=== PATIENT | male | born 1945 | race Caucasian/White ===

== ENCOUNTER 2024-10-04 07:10 | Emergency (ER) | payer OTHER, SELFPAY ==
[2024-10-04 07:16] VITALS: BP 122/68; PULSE 80; RESP 18; TEMP 36.7; O2SAT 99
[2024-10-04 07:48] VITALS: PULSE 101; RESP 20
--- NOTE | 2024-10-04 07:48 | PC.NURSE ---
Patient to er via ems from [facility] with c/o needing g tube placement, current g tube broken, also, patient c/o right lower leg pain. Dr. Conklin at [facility] with Dr. Mistry to assess patient. Currently patient alert and oriented x 2, multiple wounds noted to right lateral lower leg and patient states the pain to right lower leg 10/10 at this time and has kept him up all night, patient intermittently confused, rambling, new orders received. Call light within reach.
[2024-10-04 07:52] VITALS: BMI 29.3
--- NOTE | 2024-10-04 08:10 | EDNOTE_ITS ---
ED General RME/HPI General Chief complaint: General Adult/Misc Complain Stated complaint: G TUBE REPLACEMENT Time Seen by Provider: 10/04/24 08:14 Arrival date/time: 10/04/24 07:10 RME / HPI RME / HPI narrative: Patient is an 79-year-old male with past medical history of dysphagia s/p G-tube dependence, type 2 diabetes, hypertension, paroxysmal afib, CAD, hyperlipidemia, PTSD, GERD, BPH who was brought from [facility] to the ED on 10/04/2024 due to broken G-tube tubing needing replacement. Patient at this time denies any abdominal pain, distention, discomfort. Related Data Home Medications ?Medication ?Instructions ?Recorded ?Confirmed Metformin Hcl * (GLUCOPHAGE *) 500 mg PO BIDAC #0 tabs 01/22/15 11/02/17 lisinopril 20 mg tablet 20 mg PO QDAY #0 tabs 11/02/17 Previous Rx's ?Medication ?Instructions ?Recorded Amlodipine Besylate 5 mg PO QDAY #30 tabs aspirin 81 mg chewable tablet 81 mg PO QDAY ##30 05/19 nitroglycerin 0.4 mg sublingual 0.4 mg SL Q5MIN PRN CH EST PAIN #15 05/19/16 tablet (Nitrostat) tabs polyethylene glycol 3350 17 gram 17 gm PO QDAY PRN con stipation 05/19/16 oral powder packet ##10 Allergies Allergy/AdvReac Type Severity Reaction Status Date / Time Penicillins Allergy Severe Hives Verified 12/15/18 11:29 Past Medical History Past Medical History Comments PMH COMMENT: Past Medical History: Dysphagia s/p G-tube dependence, type 2 diabetes, hypertension, paroxysmal afib, CAD, hyperlipidemia, PTSD, GERD, BPH Family History: Unknown Surgical History: Pacemaker placement Social History: Former smoker, denies current alcohol use, denies recreational drug use Current Medications: Acetaminophen 325 mg qday, carbidopa-levodopa 25-100 mg qday, dulcolax 10 mg prn, sodium phosphate enema prn, ferrous sulfate 7 ml qday, furosemide 20 mg qday, gabapentin 300 mg BID, insulin glargine 5 U qday, miconazole powder 2% to groin BID, milk of magnesia 30 ml prn, mirtazapine 7.5 mg HS, multivitamin, [place] 5-325 mg BID prn pain, polyethylene glycol prn, vitamin C 500 mg BID, zinc oxide 40% q8h (Source: [facility] medicat ion list 10/04/2024) Allergies: Metformin, penicillin, simvastatin ED Exam Narrative Physical exam: Physical Exam General: Elderly male, awake and in no acute distress. Conversational and non- toxic appearing. HEENT: Normocephalic, atraumatic, mucous membranes moist. Heart: Regular rate and rhythm, no murmurs. Lungs: Clear to auscultation with no wheezing or crackles. Abdomen: Soft, nondistended, nontender, positive bowel sounds. ?No guarding or rebound tenderness. Neurologic: Alert and oriented x3, no gross neurological deficit, and patient able to move all 4 extremities. Extremities: No edema. Skin: No rash or ecchymoses. Course Quality Measures none Orders Category Date Time Status Morphine Inj Med 10/04/24 08:13 Discontinued 4 mg IVP X1 ONE Morphine Inj (ASD use only) Med 10/04/24 07:59 Discontinued 4 mg IVP X1 ONE Ondansetron Inj [Zofran Inj] Med 10/04/24 08:01 Discontinued 4 mg IV X1 ONE Zofrab Med 10/04/24 08:00 Discontinued 4 mg IV X1 ONE Vital Signs Vital signs: Vital Signs Temperature 98.1 F 10/04/24 07:16 Pulse Rate 80 10/04/24 07:16 Respiratory Rate 18 10/04/24 07:16 Blood Pressure 122/68 10/04/24 07:16 Pulse Oximetry (%) 99 10/04/24 07:16 Oxygen Delivery Method Room Air 10/04/24 07:16 Procedures -ED Procedure Comment Patient had debridement of the lateral right lower leg ulcers in 3 different [address]. Done by Dr. Conklin and Dr. Mistry. Debridement was done at bedside using a #10 blade unroofing the hard tops of necrotic cevallos tissue. Patient was transitioned to wet to dry dressings. Discharge instructions were written for wet to dry changes 3 times daily. [place] Patient data External records reviewed:: [facility] previous records Clinical information provided by:: EMS and other (specify) (facility) Social determinants that could affect healthcare access:: none Patient has the following chronic illnesses:: As above How is presenting disease/condition affected by chronic disease/condition?: uneffected by Evaluation data The following diagnostics were reviewed and interpreted by me:: other (specify) Lab and/or radiology exams considered but not ordered:: None Interpretation Summary: None Medications Medications considered but not ordered:: Given Medication administrations:: Medication Administration History Discontinued Medications Morphine Sulfate (Morphine Sulf Inj 10 Mg/Ml Vial (Asd Use Only)) 4 mg IVP X1 ONE Stop: 10/04/24 08:00 Last Admin: 10/04/24 08:16 Dose: Not Given Documented By: SHARLENE Non-Admin Reason: Duplicate Medication on eMAR Morphine Sulfate (Morphine Sulf Inj 10 Mg/Ml Vial) 4 mg IVP X1 ONE Stop: 10/04/24 08:14 Last Admin: 10/04/24 08:17 Dose: 4 mg Documented By: SHARLENE Non-Formulary Medication (Zofrab) 4 mg IV X1 ONE Stop: 10/04/24 08:01 Last Admin: 10/04/24 08:02 Dose: Not Given Documented By: SHARLENE Non-Admin Reason: Cancelled by Provider Ondansetron HCl (Ondansetron Inj 2 Mg/Ml Inj 2 Ml) 4 mg IV X1 ONE; Protocol Stop: 10/04/24 08:02 Last Admin: 10/04/24 08:17 Dose: 4 mg Documented By: SHARLENE Given Consultations Consultation(s) initiated? (list below): Yes Consultation #1 (Physician, Specialty, Details): 08:12 PCP, Dr. Cotto - Attempted to reached out to patient's primary care physician regarding decubitus ulcers located on the patient's right leg, at office number however patient is not established at this clinic. Reached out to Dr. Cotto's cell number but also did not get a response. Diagnosis Differential Diagnosis ED Complaint MDM: G tube end broken Most likely diagnosis given after review of the tests above:: G tube disfunction Admission Indicated Admission indicated?: not indicated Explain why admission is indicated or not indicated:: G tube replaced in ED Admission Request Was there a request for admission?: No Disposition Plan Disposition Plan: Discharge Discharge Attestation Discharge Attestation: The patient and all family members were given an opportunity to ask questions an d understood the discharge instructions. Discharge instructions specifically effects, indications for sooner follow up or return to the emergency department, and the expected course of current diagnosis. Patient condition: Stable Medical Decision Making Differential Diagnosis Differential Diagnosis: G tube end broken Discharge Plan Plan Patient Disposition: Xfer Skilled Nsg Fac (SNF) Disposition Comment: Stable for discharge back to [facility] Patient condition on transfer: Stable Prescriptions/Referrals Prescriptions/Med Rec: No Action Metformin Hcl * (GLUCOPHAGE *) tablet 500 mg PO BIDAC Qty: 0 lisinopril 20 MG tablet 20 mg PO QDAY Qty: 0 Amlodipine Besylate 5 MG tablet 5 mg PO QDAY Qty: 30 0RF polyethylene glycol 3350 17 GM packet 17 gm PO QDAY PRN (Reason: constipation ) Qty: 10 0RF nitroglycerin [Nitrostat] 0.4 MG tablet, sublingual 0.4 mg SL Q5MIN PRN (Reason: CHEST PAIN) Qty: 15 0RF aspirin 81 MG tablet,chewable 81 mg PO QDAY Qty: 30 0RF Referrals: No Primary/Family,Physician [Primary Care Provider] - In 1 week Problem List Clinical Impression: Gastrostomy tube dysfunction, Decubitus ulcer of ankle, stage 2, Skin ulcer of right lower leg, Ulcer of sacral region, stage 2 Patient/Caregiver Discharge Instructions Education Materials: Pressure Ulcer Protect Patient, Staff Ed Reducing a Patient's ..., Preventing Pressure Sores Additional Instructions: The patient's G-tube has been replaced as per the primary concern for Krishna Aguila's visit today. While the patient was examined in the ED, we have noticed several pressure ulcers present as the patient was complaining of leg pain. Dr. Cotto was contacted to bring awareness to the right lower leg ulcers, and the patient needs to be set up with the [facility] for outpatient visits with Dr. Joy and/or associates if this can be arranged. While in ED, we debrided a small pustule on the right heel and 3 small ulcers capped with dry necrotic tissue. If unable to see the [facility], patient would benefit from continued debridement and care of the right lower extremity ulcers especially, if there is a rounding provider who can provide this care. Please do wet to dry dressing changes 3 times daily for the right lower extremity heel and rodney ulcers. Please apply topical silver sulfadiazine or bacitraicin to prevent skin infections daily. Please use waffle mattress, foam shoes, and turn the patient every 2 hours when awake to prevent further pressure injuries. Return the patient to the ED in case of bleeding, redness, purulence, or suspicion for uncontrolled infection. Print Language: Greenlandic Stand Alone Forms: Ramona Award Info., Patient Portal Info Letter MD Attestation Attestation I, Ha Conklin MD, have reviewed the history, exam, and assessment of the patient. I have evaluated the patient independently and agree with the plan of care documented by [ ]. All diagnostic studies were reviewed and discussed. I confirm the diagnosis as documented by the Resident. I was present during the Medical Decision Making for this patient. The patient's plan of care was created between myself and the Resident and consistent with our discussion of the patient's case. This patient was seen by me and the resident in the ambulance bay and found to have a broken connector to the G-tube that was probably placed endoscopically sometime in the past. The exact date was unknown was not done at this facility though. A 20 Icelandic Gianluca tube was obtained from storage supply and was replaced by myself with the resident observing. Then the new 1 was inserted and was tolerated quite well. The balloon was filled with 10 cc of saline. There appeared to be function and patient tolerated that well. Secondarily patient has right leg especially more than the left the lots of excoriations and there are some eschar on the lower lateral side of that leg which is hard to see because his leg is constantly rotated laterally. There was no obvious infection at the eschar on the lower right lateral but we debrided some of that to prove that I removed a couple of the eschars with granulation tissue underneath Incidentally the right heel also had a small pyoderma a small little blister and is early pressure ulcer. Also from that area debrided a small eschar and we took a scalpel just broke the blister and there was nothing but superficial involvement with no extension deep there was granulation tissue and minimal amount of pus. No evidence of cellulitis at this time the pen king were placed on the heel. The resident contacted Dr Cotto the attending physician for the detention patient and assured there would be follow-up for the wound care close management and possible referral to the wound care clinic care. No medical workup was indicated on this patient G-tube was replaced and distal local wounds were evaluated for any deeper infection and were found to be nothing but superficial.
[2024-10-04] MEDS: MORPHINE SULF INJ 10 MG/ML VIAL 4 MG IVP (08:17)
[2024-10-04] MEDS: ONDANSETRON INJ 2 MG/ML INJ 2 ML 4 MG IV (08:17)
--- NOTE | 2024-10-04 09:13 | PC.NURSE ---
Patient lying gurney queitly resting, states pain to right lower leg is better, 5/10 on flacc scale. Call light within reach.
[2024-10-04 11:12] VITALS: BP 126/73; PULSE 80; RESP 16; O2SAT 96
--- NOTE | 2024-10-04 13:59 | PC.SS ---
Addendum entered by NANETTE Rosen 10/04/24 14:12: Updated patient's daughter Lilly to make aware, patient to return to SNF. Addendum entered by NANETTE Rosen 10/04/24 14:10: Received call from [facility] informing transport moved to 2:40pm. Updated bed side nurse and [facility] admissions, [place]. Original Note: ASW arranged transportation for the patient to return to [facility]. Patient unable to cover transport and does not posses transportation coverage through his insurance carrier. [facility]. Provided 4pm ETA. Updated bed side nurse, and SNF staff to make aware.
[2024-10-04 14:20] VITALS: BP 127/69; PULSE 81; RESP 16; O2SAT 100
--- NOTE | 2024-10-04 14:21 | PC.NURSE ---
Patient lying in gurney sleeping, patient awakens and responds normally to voice, patient awaiting transport back to [facility], social work nurse arranged transport. Call light within reach.
[2024-10-04 14:31] VITALS: BP 132/64; PULSE 80; RESP 20; TEMP 36.4; O2SAT 100
== END 2024-10-04 14:44 | disposition skilled nursing facility (03) ==
PROVIDERS: Emergency Provider Emergency Medicine
DX: K94.23 Gastrostomy malfunction (principal); E11.9 Type 2 diabetes mellitus without complications; N40.0 Benign prostatic hyperplasia without lower urinary tract symptoms; K21.9 Gastro-esophageal reflux disease without esophagitis; E78.5 Hyperlipidemia, unspecified; I10 Essential (primary) hypertension; I48.0 Paroxysmal atrial fibrillation; I25.10 Atherosclerotic heart disease of native coronary artery without angina pectoris; L89.502 Pressure ulcer of unspecified ankle, stage 2
CPT/HCPCS: 43762; 96374; 96375; 99284; J2270; J2405

== ENCOUNTER 2024-10-17 13:04 | Inpatient (IN) | payer MEDICARE, MEDICAID, OTHER, SELFPAY ==
[2024-10-17] VITALS (22 sets, daily range): BP systolic 95–162; BP diastolic 54–83; PULSE 65–146; RESP 15–85; TEMP 37–38.6; O2SAT 85–100; BMI 28.8; BMI 28.2
--- NOTE | 2024-10-17 | XR_ITS ---
Examinations: MRI Brain without intravenous contrast. MRA brain without intravenous contrast. MRA carotids without intravenous contrast 3-D vascular reconstructions Date and time of exam: October 17, 2024 1809 hrs. Indications: Stroke alert today, onset right-sided facial droop Technique: Multiple axial and sagittal images of the brain have been obtained MRA brain carotid images without contrast obtained, including 3-D postprocessing, vascular maximum intensity projection images Findings: Sellaturcica is not enlarged. The optic chiasm and infundibular stalk are not remarkable. Prepontine and interpeduncular cisterns are not enlarged. No localized enlargement of the medulla or ina. Fourth ventricle and cerebellar tonsils normal in position. Subacute hemorrhage is not seen. Fourth ventricle is midline. Mass in the cerebellopontine angle region is not evident. 7th and 8th nerve complexes exhibits symmetry. Globes are symmetrical with no retro-orbital mass. Increased white matter signal moderate Diffusion-weighted images demonstrate no focus of restricted diffusion Mass-effect upon the ventricular system is not identified. MRA carotid images degraded by patient motion. MRA brain images no large vessel occlusions Impression: Negative for acute hemorrhage mass effect or midline shift No acute infarct Moderate chronic microvascular white matter change
--- NOTE | 2024-10-17 13:05 | PC.NURSE ---
PT ARRIVED BY AMBULANCE WITH C/O FACIAL DROOP FROM THE SNF, LAST WELL AT 1140. NO FACIAL DROOP NOTED AT THIS TIME BUT PT NOT FOLLOWING ALL COMMANDS. PT ANSWERS NAME AND PLACE CORRECTLY BUT NOT MONTH OR YEAR. PT WITH DRESSINGS AND WAFFLE BOOTS TO BOTH FEET. KEEPS YELLING AT LAB TO QUIT POKING ME.
--- NOTE | 2024-10-17 13:10 | XR_ITS ---
Examination: CT brain head without contrast. 2-D sagittal coronal reconstructions Date and time of exam:October 17, 2024 1314 hours INDICATIONS: Stroke alert, onset right-sided facial droop today CTDI: vol (mGy):57.2 DLP: (mGycm):1154 Technique: Multiple CT axial sections of the brain have been obtained, 5 mm slice thickness. Contrast has not been administered. 2-D sagittal, coronal reconstructions have been obtained Low dose protocols were performed. One or more of the following dose reduction techniques were used; automated exposure control, adjustment of the mA and/or KV according to patient size, use of iterative reconstruction technique. Findings: No significant ventricular enlargement. Intra-axial or extra-axial hemorrhage density is not seen. No mass effect or midline shift Basal cisterns are not remarkable. Fourth ventricle is midline. Cranial vault intact. Impression: Negative for acute hemorrhage, mass effect or midline shift
--- NOTE | 2024-10-17 13:10 | XR_ITS ---
Examination: CTA carotids with intravenous contrast CTA brain, head with intravenous contrast. 2-D sagittal, coronal reconstructions. 3-D reconstructions. Exam date and time: October 17, 2024 1323 hours CTDI: vol (mGy) 11.3 DLP: (mGycm) 146 Technique: Multiple CTA axial brain, head carotid images post intravenous contrast injection 100 cc, Isovue-370. 2-D sagittal, coronal reconstructions. 3-D reconstructions, 3-D post processing including vascular maximum intensity projection images. Low dose protocols were performed. One or more of the following dose reduction techniques were used; automated exposure control, adjustment of the mA and/or KV according to patient size, use of iterative reconstruction technique. Findings: No significant common carotid carotid bifurcation or internal carotid artery stenoses Very atretic left vertebral artery with areas of no opacification in the neck No cerebral large vessel arterial occlusions or thrombus IMPRESSION: Very atretic left vertebral artery with areas of no opacification of the neck, recommend carotid vertebral sonography follow-up to assess for retrograde flow left vertebral artery No cerebral large vessel arterial occlusions or thrombus
--- NOTE | 2024-10-17 13:10 | EKG_ITS ---
[facility] Test Date: 2024-10-17 Pat Name: EROS LAU Department: Room: - Gender: Male Class A Lineman: : 1945 Requested By: Marlon Juarez Order Number: [id number] Reading MD: Marlon Juarez Measurements Intervals [place] Rate: 94 P: ME: QRS: -15 QRSD: 101 T: -76 QT: 357 QTc: 448 Interpretive Statements SUPRAVENTRICULAR RHYTHM ST DEVIATION AND MODERATE T-WAVE ABNORMALITY, CONSIDER ANTEROLATERAL ISCHEMIA [-0.1+ mV T-WAVE IN V3-V6] ST DEVIATION AND MODERATE T-WAVE ABNORMALITY, CONSIDER INFERIOR ISCHEMIA [-0.1+ mV T-WAVE IN II/aVF] Compared to ECG 12/15/2018 11:42:32 Supraventricular rhythm now present Possible ischemia now present Sinus rhythm no longer present Incomplete right bundle-branch block no longer present T-wave abnormality still present /store/S0/[id number]/ecg/[id number].pdf
[2024-10-17 13:18] LABS: Basophils # (Auto) 0.1 Thou/mm3 (0.0-0.2); Basophils % (Auto) 1 % (0-2.5); Eosinophils # (Auto) 0.3 Thou/mm3 (0.0-0.5); Eosinophils % (Auto) 2 % (0-10); Hematocrit 30.4 % (41.0-53.0); Hemoglobin 9.4 g/dL (13.5-16.0); Immature Granulocytes % (Auto) 1 % (0-0); Immature Granulocytes Auto 0.11 Thou/mm3 (0.00-0.00); Lymphocytes # (Auto) 1.9 Thou/mm3 (1.0-4.8); Lymphocytes % (Auto) 11 % (10-50); Mean Corpuscular HGB Conc 30.9 g/dl (31.0-37.0); Mean Corpuscular Hemoglobin 28.4 pg (25.0-35.0); Mean Corpuscular Volume 92 fL (80-100); Monocytes # (Auto) 1.5 Thou/mm3 (0.0-0.8); Monocytes % (Auto) 8 % (0-12); Neutrophils # (Auto) 13.8 Thou/mm3 (1.8-7.7); Neutrophils % (Auto) 78 % (37-80); Nucleated Red Blood Cell % 0 /100 WBC (0); Platelet Count 402 Thou/mm3 (140-440); RDW Standard Deviation 50.7 fL (35.1-43.9); Red Blood Count 3.31 Miln/mm3 (4.50-5.90); White Blood Count 17.6 Thou/mm3 (3.8-10.6)
[2024-10-17 13:33] LABS: INR 1.1 (0.9-1.3); Partial Thromboplastin Time 29.9 Seconds (22.0-36.0); Prothrombin Time 12.1 Seconds (9.0-12.2)
--- NOTE | 2024-10-17 13:35 | PC.NURSE ---
PT WITH GT TO UPPER MID ABD. SITE WITHOUT REDNESS
--- NOTE | 2024-10-17 13:36 | ESCONSULT_ITS ---
Tele Neuro Consultation Consultation Date 10/17/24 Laboratory-Coagulation Panel PT 12.1 Seconds (9.0-12.2) 10/17/24 13:12 INR 1.1 (0.9-1.3) 10/17/24 13:12 APTT 29.9 Seconds (22.0-36.0) 10/17/24 13:12 Consultation Narrative [facility] Patient Name:???Krishna Aguila Date of :???1945 Date of Service:???10/17/2024 13:05:00 Diagnosis:?G93.41 - Encephalopathy Metabolic Impression: ?79 yo M who presents with reported facial droop and now with AMS. HCT shows tiny dot of hyperdensity in left frontal hart radiata region adjacent to edge of lateral ventricle of unclear etiology. Called both numbers in chart for contacts (2 daughters is what is listed) with no answer. With patient currently altered and unable to go through contraindications/risks/benefits to TNK/thrombolytics, not a candidate for thrombolytics at this time. CTA pending to evalute for LVO but would doubt LVO based on current symptoms (whether this is stroke or not is also very questionable). Pending no LVO on CTA, would admit for broad AMS workup as follows: Our recommendations are outlined below. Recommendations: ? Stroke/Telemetry Floor ? Neuro Checks ? Bedside Swallow Eval ?-f/u CTA head/neck ?-obtain MRI brain w/o contrast (routine) ? --if + for acute stroke = will need full stroke workup (including MRA head/neck w/o contrast, lipid panel, A1c, TTE, asa/atorvastatin, etc) ? --allow for permissive HTN up to 180 systolic while MRI brain pending ? --if MRI negative for stroke = goal of normotension per primary team ?-obtain B12, folate, TSH, ammonia ?-obtain UA, CXR ?-obtain UDS, Etoh Level ?-obtain CMP, CBC if not already done ?-Delirium precautions: Blinds open during the day, closed at night, frequent reorientation, minimize nighttime interruptions ?-When possible, avoid benzodiazepines, opioid pain medications, and anticholinergic medications ?-dvt ppx per primary team ?-PT/OT/ST consults - inpatient rehab if recommended ?-call neurology immediately with significant change in exam Sign Out: ? Discussed with Emergency Department Provider Advanced Imaging:Advanced imaging has been ordered. Results pending. Metrics: Last Known Well: 10/17/2024 11:40:00 Dispatch Time: 10/17/2024 13:05:00 Arrival Time: 10/17/2024 13:04:00 Initial Response Time: 10/17/2024 13:06:50Symptoms: right facial droop. Initial patient interaction: 10/17/2024 13:19:00 NIHSS Assessment Completed: 10/17/2024 13:26:00Patient is not a candidate for Thrombolytic. Thrombolytic Medical Decision: 10/17/2024 13:34:20Patient was not deemed candidate for Thrombolytic because of following reasons: Care-team unable to determine eligibility. . I personally Reviewed the CT Head and HCT shows tiny dot of hyperdensity in left frontal hart radiata region adjacent to edge of lateral ventricle of unclear etiology Primary Provider Notified of Diagnostic Impression and Management Plan on: 10/17/2024 13:32:41 History of Present Illness:Patient is a 79 year old Male. Patient was brought by EMS for symptoms of right facial droop. 79 yo M who presents with reported facial droop and now with AMS. Per report, LKN 1140 am. Witnessed by staff at assisted had change reportedly (was being changed at the time). Only symptoms reported is new right facial droop. Patient answers some questions but not most, fairly uncooperative on exam. At times will yell out in complete sentences however. Lifts both arms, does not lift legs. Unclear what baseline status is. ? Past Medical History: ?Hypertension ?Diabetes Mellitus ?Atrial Fibrillation Other PMH:? GERD, PD Medications: No Anticoagulant use? No Antiplatelet use Reviewed EMR for current medications Other Medications Pertinent To Assessment Include: based on medications listed in documents Allergies:? Reviewed Social History: Unable To Obtain Due To Patient Status :?Patient Is Confused Family History: Family History Cannot Be Obtained Because:Patient Is Confused ROS : 14 Points Review of Systems was performed and was negative except mentioned in HPI. ? ? Examination: BP(129/79),?Pulse(121),?Blood Glucose(117) 1A: Level of Consciousness - Alert; keenly responsive?+ 0 1B: Ask Month and Age - Could Not Answer Either Question Correctly?+ 2 1C: Blink Eyes & Squeeze Hands - Performs 1 Task?+ 1 2: Test Horizontal Extraocular Movements - Normal?+ 0 3: Test Visual [place]ney - No Visual Loss?+ 0 4: Test Facial Palsy (Use Grimace if Obtunded) - Minor paralysis (flat nasolabial fold, smile asymmetry)?+ 1 5A: Test Left Arm Motor Drift - No Drift for 10 Seconds?+ 0 5B: Test Right Arm Motor Drift - No Drift for 10 Seconds?+ 0 6A: Test Left Leg Motor Drift - No Drift for 5 Seconds?+ 0 6B: Test Right Leg Motor Drift - No Effort Against [place]?+ 3 7: Test Limb Ataxia (FNF/Heel-Bell) - Does Not Understand?+ 0 8: Test Sensation - Normal; No sensory loss?+ 0 9: Test Language/Aphasia - Severe Aphasia: Fragmentary Expression, Inference Needed, Cannot Identify Materials?+ 2 10: Test Dysarthria - Normal?+ 0 11: Test Extinction/Inattention - No abnormality?+ 0 NIHSS Score:?9 NIHSS Free Text :?left facial droop Pre-Morbid Modified Jan Scale:Unable to assess Spoke with :?ED provider This consult was conducted in real time using interactive audio and video technology. Patient was informed of the technology being used for this visit and agreed to proceed. Patient located in hospital and provider located at home/office setting. Patient is being evaluated for possible acute neurologic impairment and high probability of imminent or life-threatening deterioration. I spent total of 30 minutes providing care to this patient, including time for face to face visit via telemedicine, review of medical records, imaging studies and discussion of findings with providers, the patient and/or family. Dr Adithya Mosqueda [facility] For Inpatient follow-up with [facility] physician please call [facility] at . As we are not an outpatient service for any post hospital discharge needs please contact the hospital for assistance. If you have any questions for the [facility] physicians or need to reconsult for clinical or diagnostic changes please contact us via [facility] at . ?
--- NOTE | 2024-10-17 13:45 | PC.NURSE ---
BACK FROM CT AND TURNED SIDE TO SIDE WITH 3 PERSON ASSIST AND LINEN CHANGED
[2024-10-17 13:46] LABS: Alanine Aminotransferase < 7 U/L (10-49); Albumin, Serum 3.7 gm/dL (3.4-4.8); Albumin/Globulin Ratio 0.7 (1.2-2.2); Alkaline Phosphatase 72 U/L (46-116); Anion Gap 11 (7-16); Aspartate Amino Transferase 16 U/L (0-34); BUN/Creatinine Ratio 28 Ratio (12-20); Bilirubin,Total 0.3 mg/dL (0.3-1.2); Blood Urea Nitrogen 39 mg/dL (9-23); Calcium 9.6 mg/dL (8.3-10.6); Calcium (Corrected) 9.8 mg/dL (8.5-10.1); Carbon Dioxide 22.4 mMol/L (20.0-31.0); Chloride 101 mMol/L (98-107); Creatinine (Component) 1.4 mg/dL (0.6-1.3); Estimated Creatinine Clearance 51.3 mL/min (>60); Globulin 5.3 gm/dL (2.3-3.5); Glucose 121 mg/dL (74-106); Magnesium 2.1 mg/dL (1.6-2.6); Osmolality,Calculated 278 (275-295); Potassium 5.2 mMol/L (3.4-5.1); Sodium 134 mMol/L (136-145); Troponin I < 0.020 ng/mL (0.0-0.045); eGFR 50 See Note
--- NOTE | 2024-10-17 13:55 | EDNOTE_ITS ---
ED General RME/HPI General Chief complaint: Neuro Symptoms/Deficit Stated complaint: POSS. STROKE, FACIAL DROOP Time Seen by Provider: 10/17/24 13:10 Arrival date/time: 10/17/24 13:04 CC: Stroke alert HPI patient presents the ER via EMS who report last known normal was at 11:40 AM with the patient now has a right-sided facial droop. The patient has a baseline diagnosis of encephalopathy and is oriented to person and place and occasionally to time. On initial assessment patient was following all commands with no deficits it was difficult to ascertain if the patient had a facial droop, as there was no significant findings. Patient was mildly agitated secondary to blood being drawn at the time of the initial assessment. Related Data Home Medications ?Medication ?Instructions ?Recorded ?Confirmed Metformin Hcl * (GLUCOPHAGE *) 500 mg PO BIDAC #0 tabs 01/22/15 11/02/17 lisinopril 20 mg tablet 20 mg PO QDAY #0 tabs 11/02/17 Previous Rx's ?Medication ?Instructions ?Recorded Amlodipine Besylate 5 mg PO QDAY #30 tabs aspirin 81 mg chewable tablet 81 mg PO QDAY ##30 05/19 nitroglycerin 0.4 mg sublingual 0.4 mg SL Q5MIN PRN CH EST PAIN #15 05/19/16 tablet (Nitrostat) tabs polyethylene glycol 3350 17 gram 17 gm PO QDAY PRN con stipation 05/19/16 oral powder packet ##10 Allergies Allergy/AdvReac Type Severity Reaction Status Date / Time Penicillins Allergy Severe Hives Verified 10/17/24 14:14 Review of Systems Review of Systems Narrative Review of Systems: GEN: No fever, no chills, no weight loss EYES: No discharge, no visual changes, no pain HEENT: No ear pain, no congestion, no sore throat PULM: No shortness of breath, no cough, no congestion CV: No chest pain, no dyspnea on exertion, no palpitations GI: No nausea, no vomiting, no diarrhea, no pain, no constipation : No frequency, no urgency, no dysuria MUSC/SKEL: No joint pain, no back pain SKIN: No rash PSYCH: No hallucinations, no depression HEME/LYMPH: No easy bleeding or bruising tendencies NEURO: No weakness, no headache Past Medical History Past Medical History CARDIAC: Positive Cardiac Disorders, Atrial Fibrillation, Coronary Artery Disease and Hypertension; Negative Congestive Heart Failure RESPIRATORY: Positive Pneumonia; Negative Chronic Obstructive Pulmonary Disease (COPD) GASTROINTESTINAL: Positive Gastroesophageal Reflux Disease GENITOURINARY: Negative Renal Disease MUSCULOSKELETAL: Positive Musculoskeletal Disorders (GENERALIZED WEAKNESS) ENDOCRINE: Positive Diabetes Mellitus Type 2; Negative Diabetes Mellitus Type 1 PSYCHO/SOCIAL: Positive Depression Surgical History SURGICAL: Positive Cardiac Catheterization and Pacemaker Social History SMOKING STATUS: Never smoker SUBSTANCE USE: does not use ED Exam Narrative Physical exam: [General: Obese appears not in any acute distress Head normocephalic HEENT: Eyes pupils are PERRLA EOMs are intact mouth pink dry membranes uvula is midline swallow symmetrical no tongue deviated good pronunciation. Swallow symmetrical phonation is normal. Nose no rhinorrhea or otorrhea. All other subsystems of HEENT are within acceptable limits Neck is supple nontender no JVD no edema Chest equal chest rise nontender to palpation Respiratory: Clear to auscultation no wheezes crackles or rubs CV: Rate rhythm is regular no murmurs rubs or clicks Abdomen is distended secondary to body habitus soft nontender no masses positive bowel sounds all 4 quadrants Back: No CVA tenderness no spinous process tenderness from cervical spine thoracic and lumbar spine Skin: Intact no petechiae rash induration ulceration or crepitus Extremities: Moving all extremity against resistance cap refill less than 2 seconds neurosensory intact Neuro: Awake alert oriented x2 person and place, Glascow coma 15 no focal deficits] Course Quality Measures none Orders Category Date Time Status Bedside Blood Glucose NOW Care 10/17/24 13:10 Completed Contour Path Tape Mill Operator NOW Care 10/17/24 13:10 Active Continuous Pulse Oximetry NOW Care 10/17/24 13:10 Completed EKG (ED ONLY) *Do not use* NOW Care 10/17/24 13:10 Completed In and Out Catheter NEEDED Care 10/17/24 13:10 Active Insert IV NOW Care 10/17/24 13:10 Active NIH Stroke Scale now Care 10/17/24 13:10 Active NPO NOW Care 10/17/24 13:10 Active Nurse Swallow Screen x1 Care 10/17/24 13:10 Active Consult to Neurology / Tele-Neurology Routine Cons 10/17/24 13:[address] angio stroke protocol Stat Exams 10/17/24 13:[address] stroke protocol Stat Exams 10/17/24 13:10 Completed EKG (ED Only) Stat Exams 10/17/24 13:10 Draft CBC Stat Lab 10/17/24 13:12 Completed Comprehensive Metabolic Panel Stat Lab 10/17/24 13:12 Completed Drug Screen,Urine Stat Lab 10/17/24 14:25 Completed Magnesium Stat Lab 10/17/24 13:12 Completed Partial Thromboplastin Time Stat Lab 10/17/24 13:12 Completed Prothrombin Time with INR Stat Lab 10/17/24 13:12 Completed Troponin I Stat Lab 10/17/24 13:12 Completed Urinalysis Stat Lab 10/17/24 14:25 Completed Urine Culture Stat Lab 10/17/24 14:25 Received Ondansetron Inj [Zofran Inj] Med 10/17/24 13:10 Active 4 mg IV Q4HR PRN Oxygen Delivery NOW RT 10/17/24 13:10 Active Vital Signs Vital signs: Vital Signs Pulse Rate 96 10/17/24 13:08 [facility] Patient data External records reviewed:: [facility] previous records and EMS form Clinical information provided by:: patient and EMS Social determinants that could affect healthcare access:: none Patient has the following chronic illnesses:: Acute respiratory failure gastritis encephalopathy gastrotomy A-fib How is presenting disease/condition affected by chronic disease/condition?: u neffected by Evaluation data The following diagnostics were reviewed and interpreted by me:: lab results, radiology exam(s) and EKG tracing(s) Lab and/or radiology exams considered but not ordered:: EKG performed at 1342 shows ventricular rate of 94 QRS 101 QTc of [address] segment depressions in V3 4 5 and 6. Baseline artifact in leads I and II. ST separate depressions are new finding compared to an old EKG of July 2020. CBC shows a white count of 17.6 H&H of 9.4 and 30.4 respectively with a platelet count of 402 Coags within acceptable limits Sodium 134 potassium of 5.2 glucose of 121. BUN of 39 creatinine 1.4 no transaminitis or T. bili elevation Troponin is negative CT of the head interpreted by me read by radiology as negative for any acute finding CTA shows no LVO's or gross abnormalities. Interpretation Summary: Discussion with neurology patient does not meet tPA criteria, no family members have come to discuss it with me at this time patient will be admitted for rule out CVA. Patient's case discussed with resident for Dr. June who agrees to accept the patient for admission. Medications Medications considered but not ordered:: None Medication administrations:: Medication Administration History Ondansetron HCl (Ondansetron Inj 2 Mg/Ml Inj 2 Ml) 4 mg IV Q4HR PRN PRN Reason: NAUSEA OR VOMITING Stop: 11/16/24 13:09 None Consultations Consultation(s) initiated? (list below): Yes Consultation #1 (Physician, Specialty, Details): Teleneurologist Time: 15:26 Diagnosis Differential Diagnosis ED Complaint MDM: CVA TIA intercranial hemorrhage Most likely diagnosis given after review of the tests above:: CVA Admission Indicated Admission indicated?: indicated Explain why admission is indicated or not indicated:: Further medical workup Admission Request Was there a request for admission?: No Disposition Plan Disposition Plan: Admit Medical Decision Making Differential Diagnosis Differential Diagnosis: CVA TIA intercranial hemorrhage Lab Data 10/17/24 13:12 10/17/24 13:12 Labs: Lab Results 10/17/24 10/17/24 Range/Units 13:12 14:25 WBC 17.6 H (3.8-10.6) Thou/mm3 RBC 3.31 L (4.50-5.90) Miln/mm3 Hgb 9.4 L (13.5-16.0) g/dL Hct 30.4 L (41.0-53.0) % MCV 92 (80-100) fL MCH 28.4 (25.0-35.0) pg MCHC 30.9 L (31.0-37.0) g/dl RDW Std Deviation 50.7 H (35.1-43.9) fL Plt Count 402 (140-440) Thou/mm3 Neut % (Auto) 78 (37-80) % Lymph % (Auto) 11 (10-50) % [place] % (Auto) 8 (0-12) % Eos % (Auto) 2 (0-10) % Baso % (Auto) 1 (0-2.5) % Neut # (Auto) 13.8 H (1.8-7.7) Thou/mm3 Lymph # (Auto) 1.9 (1.0-4.8) Thou/mm3 [place] # (Auto) 1.5 H (0.0-0.8) Thou/mm3 Eos # (Auto) 0.3 (0.0-0.5) Thou/mm3 Baso # (Auto) 0.1 (0.0-0.2) Thou/mm3 Immature Gran # (Auto) 0.11 H (0.00-0.00) Thou/mm3 Absolute Nucleated RBC 0.00 (0.00-0.00) Thou/mm3 Immature Gran % 1 H (0-0) % Nucleated RBC % 0 (0) /100 WBC PT 12.1 (9.0-12.2) Seconds INR 1.1 (0.9-1.3) APTT 29.9 (22.0-36.0) Seconds Sodium 134 L (136-145) mMol/L Potassium 5.2 H (3.4-5.1) mMol/L Chloride 101 (98-107) mMol/L Carbon Dioxide 22.4 (20.0-31.0) mMol/L Anion Gap 11 (7-16) BUN 39 H (9-23) mg/dL Creatinine 1.4 H (0.6-1.3) mg/dL Estim Creat Clear Calc 51.3 L (>60) mL/min eGFR 50 L (60 - ) See Note BUN/Creatinine Ratio 28 H (12-20) Ratio Glucose 121 H (74-106) mg/dL Calculated Osmolality 278 (275-295) Calcium 9.6 (8.3-10.6) mg/dL Corrected Calcium 9.8 (8.5-10.1) mg/dL Magnesium 2.1 (1.6-2.6) mg/dL Total Bilirubin 0.3 (0.3-1.2) mg/dL AST 16 (0-34) U/L ALT < 7 L (10-49) U/L Alkaline Phosphatase 72 (46-116) U/L Troponin I < 0.020 (0.0-0.045) ng/mL Total Protein 9.0 H (5.7-8.2) gm/dL Albumin 3.7 (3.4-4.8) gm/dL Globulin 5.3 H (2.3-3.5) gm/dL Albumin/Globulin Ratio 0.7 L (1.2-2.2) Ur Collection Type Clean Catch Urine Color Lt-Yellow (Lt Yel-Yel) Urine Clarity Clear (Clear/Hazy) Urine pH 6.5 (5.0-7.0) Ur Specific [place] 1.038 H (1.001-1.035) Urine Protein 1+ A (Neg - Trace) Urine Glucose (UA) Negative (Negative) Urine Ketones Negative (Negative) Urine Blood 1+ A (Negative) Urine Nitrite Negative (Negative) Urine Bilirubin Negative (Negative) Urine Urobilinogen (Auto) Negative (0.0-1.0) mg/dL Ur Leukocyte Esterase Positive (Negative) Urine RBC 11 H (0-3) /hpf Urine WBC 62 H (0-5) /hpf Ur Squamous Epith Cells 0 (0-5) /hpf Urine Bacteria Rare (None) Urine Opiates Screen Positive A (Negative) Urine Fentanyl Screen Negative (Negative) Ur Barbiturates Screen Negative (Negative) U Amphetamin/Meth Scrn Negative (Negative) U Benzodiazepines Scrn Negative (Negative) U Cocaine Metab Screen Negative (Negative) U Marijuana (THC) Screen Negative (Negative) Discharge Plan Plan Patient Disposition: Other Care w/in Hosp ([facility]) Patient condition on transfer: Stable Prescriptions/Referrals Prescriptions/Med Rec: No Action Metformin Hcl * (GLUCOPHAGE *) tablet 500 mg PO BIDAC Qty: 0 lisinopril 20 MG tablet 20 mg PO QDAY Qty: 0 Amlodipine Besylate 5 MG tablet 5 mg PO QDAY Qty: 30 0RF polyethylene glycol 3350 17 GM packet 17 gm PO QDAY PRN (Reason: constipation ) Qty: 10 0RF nitroglycerin [Nitrostat] 0.4 MG tablet, sublingual 0.4 mg SL Q5MIN PRN (Reason: CHEST PAIN) Qty: 15 0RF aspirin 81 MG tablet,chewable 81 mg PO QDAY Qty: 30 0RF Referrals: Sadie Cotto MD [Primary Care Provider] - In 1 week Problem List Clinical Impression: CVA (cerebral vascular accident) Patient/Caregiver Discharge Instructions Print Language: Cook Islander Stand Alone Forms: Ramona Award Info., Patient Portal Info Letter PA/HOUSEKEEPING ROOM ATTENDANT Supervising Physician PA/HOUSEKEEPING ROOM ATTENDANT Supervising Physician: Marlon Sparks ENP
--- NOTE | 2024-10-17 14:25 | PC.NURSE ---
URINE OBTAINED FROM CATHETER AND SENT TO LAB
[2024-10-17 14:45] LABS: Collection Type, Urine Clean Catch; Squamous Epithelial Cell,Urine 0 /hpf (0-5)
[2024-10-17 14:57] LABS: Bacteria,Urine Rare; Bilirubin,Urine Negative (Negative); Blood,Urine 1+ (Negative); Clarity,Urine Clear (Clear/Hazy); Color,Urine Lt-Yellow (Lt Yel-Yel); Glucose, Urine Negative (Negative); Ketones,Urine Negative (Negative); Leukocyte Esterase,Urine Positive (Negative); Nitrite,Urine Negative (Negative); PH,Urine 6.5 (5.0-7.0); Protein,Urine 1+ (Neg - Trace); RBC,Urine 11 /hpf (0-3); Specific Gravity,Urine 1.038 (1.001-1.035); Urobilinogen,Urine Negative mg/dL (0.0-1.0); WBC,Urine 62 /hpf (0-5)
[2024-10-17 14:58] LABS: Amphetamine/Methamp Scrn,U Negative (Negative); Barbiturate Screen,Urine Negative (Negative); Benzodiazepines Screen,Urine Negative (Negative); Benzoylecgonine Screen, Ur Negative (Negative); Fentanyl Screen,Urine Negative (Negative); Opiate Screen,Urine Positive (Negative); THC Screen,Urine Negative (Negative)
--- NOTE | 2024-10-17 16:05 | PC.NURSE ---
HOSPITALIST HERE TO SEE PT AND REQUESTING CATHETER BE CHANGED, DONE
--- NOTE | 2024-10-17 16:10 | PC.NURSE ---
HOSPITALIST AWARE OF SEPSIS ALERT. AWAITING ORDERS FOR ANTIBIOTICS
--- NOTE | 2024-10-17 16:18 | XR_ITS ---
Examination: AP chest single view Technique one AP portable semiupright chest single view Exam date and time: October 17, 2024 1630 hours Comparison 03/10/2020 INDICATIONS: Shortness of breath beginning one week ago. FINDINGS: Normal heart size Bipolar transvenous cardiac leads satisfactory position No pneumonia or pulmonary edema Reduced inspiratory effort IMPRESSION: Poor inspiratory effort chest x-ray No pneumonia or pulmonary edema
[2024-10-17] MEDS: SODIUM CHLORIDE 0.9% 1000 ML 1,000 ML 999 ML IV (16:33)
--- NOTE | 2024-10-17 16:33 | ESHP_ITS ---
<Statement entered by Martha Mccracken MD - 10/22/24 21:52> I reviewed above note and agree with findings and plans. I have also personally examined the patient with medicine team and went over assessment and plan with medical team including international nurse and resident physician. <Statement entered by Espinoza Montes MD - 10/17/24 19:21> This patient is a 79-year-old male coming from [facility] with altered mental status/confusion and was found to have 4 out of 4 SIRS criteria. Initially patient was worked up for stroke. Head CT was unremarkable. Patient was out of window for tPA. While assessment of the patient patient was found shaky and AO x 2. Patient will be admitted for acute encephalopathy likely multifactorial due to infection versus CVA versus underlying history of Parkinson disease. Source of sepsis possible urine infection. Patient had indwelling urine catheter. Snell catheter was replaced. Patient was started on Rocephin and doxycycline for coverage of gram-negative and MRSA. Patient was also found to have stage I sacral ulcer at the back and chronic wounds on both lower extremities. Will follow-up on blood cultures/urine cultures and MRSA screen. Home medications were reconciled. Will continue with current regimen. Will follow-up with MRI brain stroke protocol. Neurology has been consulted. Ordered PT/speech therapy evaluation. All labs and orders were reviewed. I saw and examined the patient, and I agree with current management stated by Dr Modesto MD,PGY1. Plan of care was discussed with the attending physician and resident physician. Disclaimer: Despite multiple revisions, due to the dictation software being used, the document bellow may not be free of grammatical errors including phonetic/typographic errors. However, this does not deter from our commitment to providing health care in the patient's best interest in mind. Dr. Kyra MD, PGY 2 Documentation for date of: 10/17/24 HPI History of Present Illness History of present illness: Patient is unable to provide history therefore majority of history is obtained from speaking to ED staff, resident and staff at [facility] Mr. Aguila is an 79-year-old male with past medical history significant for dysphagia s/p G-tube dependence, type 2 diabetes, hypertension, paroxysmal afib, CAD, hyperlipidemia, PTSD, GERD, BPH and Parkinson disease who was brought from [facility] due to altered mental status. Per staff at [facility] pt was not at his baseline. Typically, Pt is very aggressive and loud in his wants and needs. Today Pt's nurse observed he was not his usual self and was not responding very much to her questions. Pt has a flat affect and was staring at blank spaces without speaking. Pt's typically spends most of his day alone, he has not been around sick residents, and has not had any concerns of acute illness in him. Pt's temperature and vitals were within normal limits today. Pt appeared drowsy and not easily arousable. Nursing staff is unable to confirm when was the last time Snell catheter was placed. There was no change in his diet as patient is currently on continuous feed through PEG tube due to dysphagia. ED Course: Vitals: Bp 162/80, HR 146, Temp 101.5 (rectal) and saturating above 95% on 3L O2 via NC Labs: WBC 17.6, hemoglobin 9.4, hematocrit 30.4, sodium 134, potassium 5.2, BUN 39, creatinine 1.4, GFR 50, glucose 121, lactic acid 3.1 Urinalysis: 1+ urine blood, leukocyte esterase positive, urine RBC 11, urine WBC 62 Urine tox: Opioids positive Images: CT head: Negative for acute hemorrhage, mass effect or midline shift CTA head and neck:Very atretic left vertebral artery with areas of no opacification of the neck, recommend carotid vertebral sonography follow-up to assess for retrograde flow left vertebral artery, No cerebral large vessel arterial occlusions or thrombus Chest x-ray: Poor inspiratory effort chest x-ray, No pneumonia or pulmonary edema Past Medical History: Dysphagia s/p G-tube dependence, type 2 diabetes, hypertension, paroxysmal afib, CAD, hyperlipidemia, PTSD, GERD, BPH Family History: Unknown Surgical History: Pacemaker placement Social History: Former smoker, denies current alcohol use, denies recreational drug use Current Medications: Acetaminophen 325 mg qday, carbidopa-levodopa 25-100 mg qday, dulcolax 10 mg prn, sodium phosphate enema prn, ferrous sulfate 7 ml qday, furosemide 20 mg qday, gabapentin 300 mg BID, insulin glargine 5 U qday, miconazole powder 2% to groin BID, milk of magnesia 30 ml prn, mirtazapine 7.5 mg HS, multivitamin, [place] 5-325 mg BID prn pain, polyethylene glycol prn, vitamin C 500 mg BID, zinc oxide 40% q8h (Source: [facility] medication list 10/04/2024) Allergies: Metformin, penicillin, simvastatin Review of Systems Review of Systems Systems Reviewed: All systems reviewed, normal except as documented Exam Vital Signs Temp Pulse Resp BP Pulse Ox O2 Del Method O2 Flow Rate 101.5 F H 146 H 19 162/80 H 100 Nasal Cannula 3 10/17/24 16:05 10/17/24 16:05 10/17/24 16:10/17/24 16:00 10/17/24 16:05 10/17/24 16:05 10/17/24 16:05 Narrative Exam GENERAL: A&Ox2, Pt appears to be in distress from pain but is unable to localized NEURO: no focal neurological deficits noted HEENT: Atraumatic, Normocephalic. mucous membranes moist. Eyes open, symmetrical, & clear HEART: Normal Heart Sounds LUNGS: Clear to auscultation with no wheezing or crackles. ABDOMEN: soft, non-distended, non-tender, bowel sounds heard, no guarding or rebound tenderness SKIN: No Rash or ecchymoses, sacral stage 1 pressure ulcer EXTREMITIES: No edema, tenderness, able to move all 4 extremities, Pt has wound bilaterally on LE and feet with bandages Results: Labs 10/17/24 13:12 10/17/24 13:12 Labs: Short CBC 10/17/24 Range/Units 13:12 WBC 17.6 H (3.8-10.6) Thou/mm3 Hgb 9.4 L (13.5-16.0) g/dL Hct 30.4 L (41.0-53.0) % Plt Count 402 (140-440) Thou/mm3 BMP 10/17/24 13:12 Sodium 134 L Potassium 5.2 H Chloride 101 Carbon Dioxide 22.4 BUN 39 H Creatinine 1.4 H Glucose 121 H Calcium 9.6 Cardiac Enzymes 10/17/24 Range/Units 13:12 Troponin I < 0.020 (0.0-0.045) ng/mL Liver Function 10/17/24 Range/Units 13:12 Total Bilirubin 0.3 (0.3-1.2) mg/dL AST 16 (0-34) U/L ALT < 7 L (10-49) U/L Alkaline Phosphatase 72 (46-116) U/L Albumin 3.7 (3.4-4.8) gm/dL Urine 10/17/24 Range/Units 14:25 Urine Color Lt-Yellow (Lt Yel-Yel) Urine Clarity Clear (Clear/Hazy) Urine pH 6.5 (5.0-7.0) Ur Specific [place] 1.038 H (1.001-1.035) Urine Protein 1+ A (Neg - Trace) Urine Glucose (UA) Negative (Negative) Quality Measures Quality Measures none Advance care planning discussed with:: child Medications Home Medications and Allergies Home Medications ?Medication ?Instructions ?Recorded ?Confirmed ?Type Metformin Hcl * (GLUCOPHAGE *) 500 mg PO BIDAC #0 tabs 01/22/15 11/02/17 History lisinopril 20 mg tablet 20 mg PO QDAY #0 tabs 11/02/17 History Allergies Allergy/AdvReac Type Severity Reaction Status Date / Time Penicillins Allergy Severe Hives Verified 10/17/24 14:14 Visit Medications Acetaminophen (Acetaminophen Supp 650 Mg Supp) 650 mg NC Q6HR PRN; Protocol PRN Reason: FEVER>101.5 Stop: 11/16/24 16:17 Acetaminophen (Acetaminophen 325 Mg Tablet) 650 mg PO Q6H PRN PRN Reason: Fever >101.5 Stop: 11/16/24 16:17 Enoxaparin Sodium (Enoxaparin Sod Inj 40 Mg/0.4 Ml Syringe) 40 mg SC QDAY TERRY Stop: 11/01/24 08:59 Sodium Chloride (Ns) 1,000 mls @ 999 mls/hr IV .Q1H1M ONE Stop: 10/17/24 17:21 Ondansetron HCl (Ondansetron Inj 2 Mg/Ml Inj 2 Ml) 4 mg IV Q4HR PRN PRN Reason: NAUSEA OR VOMITING Stop: 11/16/24 13:09 Sennosides (Senna Tablet) 1 tab PO QDAY TERRY; Protocol Stop: 11/17/24 08:59 Assessment & Plan Plan Mr. Aguila is an 79-year-old male with past medical history significant for dysphagia s/p G-tube dependence, type 2 diabetes, hypertension, paroxysmal afib, CAD, hyperlipidemia, PTSD, GERD, BPH and Parkinson disease who was brought from [facility] due to altered mental status. Pt is admitted to the hospital for CVA rule out and sepsis secondary to UTI. #Acute encephalopathy - likely multifactorial DDx: Sepsis, Acute CVA, Parkinsons, toxic -Per nursing facility staff pt was drowsy and not easily arousable -Urine tox: Opioids positive Teleneuro was consulted, with recommendation of MRI pending to rule out CVA. CVA r/o -LKW:10/17/2024 11:40:00 -NIHSS Score: Patient is not a candidate for Thrombolytic. -Tele neuro consulted, recommendations appreciated -CT head: Negative for acute hemorrhage, mass effect or midline shift -CTA head and neck:Very atretic left vertebral artery with areas of no opacification of the neck, recommend carotid vertebral sonography follow-up to assess for retrograde flow left vertebral artery, No cerebral large vessel arterial occlusions or thrombus Plan: - Neuro checks q4HR - Keep head of bed elevated at 30 degrees -?limit sedating meds -Euglycemia and Avoid Hyperthermia (PRN Acetaminophen) -?allow permissive HTN for first 24 hours than slowly and gradually goal normotension thereafter -?qbche-jphoaujog-seffdlepvd workup (U/A, UCx, UDS, CXR) -?MRI brain when able -?echo with bubble study ordered - follow up lipid panel, HbA1c, TSH with free T4 ?-Referral to PT/OT/speech therapy #Sepsis 2/2 to #UTI SIRS 4/4 met: tachycardia, tachypnea, fever, leukocytosis, lactic acid 3.3 -Urinalysis: 1+ urine blood, leukocyte esterase positive, urine RBC 11, urine WBC 62 -Pt has a chronic Snell catheter, presented to the ED with a snell in place. -replaced the snell with a new one -urine culture and blood cultures pending -Due to high bp on admission pt was given 1L bolus fluid -repeat lactic acid at 8pm -Ceftriaxone and doxycycline ordered 10/17- #Normocytic Anemia -Hgb 9.4 and Hct 30.4 -Previous visit Hgb above 14 -no signs of active bleeding, will continue to monitor and consult GI if Hgb continues to drop #GERD #Dysphagia s/p G-tube dependence -Pt is started on pantropazole and will resume tube feeds #Type 2 diabetes -A1c for morning labs ordered -finger stick glucose 117 -will hold insulin sliding scale today, will resume tomorrow #Hypertension #Paroxysmal a-fib #CAD #hyperlipidemia -med rec pending , BP is stable #PTSD #Parkinson disease -resumed home carbidopa-levodopa 25-100 mg #BPH -Chronic Snell, Pt arrived from the facility with a snell. -Pt has a UTI therefore snell was replaced Health Maintenance Disposition: Telemetry DVT Prophylaxis: enoxaparin 40mg Qdaily GI Prophylaxis: Pantoprozol-40 IV Qday Diet: tube feeds resumed Lines: Peripheral lines Code status: Full Assessment and plan discussed with my senior resident Dr. Montes & attending physician Dr. Kaykay Salvador (PGY-1)- Internal medicine resident
[2024-10-17] MEDS: ACETAMINOPHEN 325 MG TABLET 650 MG PO ×2 (16:34→21:47)
[2024-10-17 16:56] LABS: Lactate (Lactic Acid) 3.3 mMol/L (0.4-2.0)
[2024-10-17] MEDS: cefTRIAXone 1,000 MG in SODIUM CHLORIDE 0.9% (Popper) 50 ML 100 MG IV (17:14)
[2024-10-17 17:28] LABS: Creatine Kinase < 15 U/L (34-171)
[2024-10-17 19:48] LABS: Reflex Lactate? Y
[2024-10-17] MEDS: DOXYCYCLINE INJ 100 MG in SODIUM CHLORIDE 0.9% (POP) 100 ML IV (21:33)
[2024-10-17] MEDS: ASCORBIC ACID 250 MG TABLET 500 MG GT (22:40)
[2024-10-17] MEDS: MIRTAZAPINE 15 MG TABLET 7.5 MG GT (22:40)
[2024-10-17] MEDS: HYDROcodone/APAP 5/325 TABLET 1 TAB GT (22:58)
[2024-10-18] VITALS: BP 135/60; PULSE 115; PULSE 83; RESP 28; TEMP 37.2; O2SAT 94
[2024-10-18] MEDS: GABAPENTIN 300 MG CAPSULE GT ×2 (01:24→08:21)
[2024-10-18] MEDS: HYDROcodone/APAP 5/325 TABLET 1 TAB PO (01:24)
[2024-10-18 04:00] VITALS: BP 118/80; PULSE 93; PULSE 94; RESP 24; TEMP 36.8; O2SAT 99
[2024-10-18 05:19] LABS: Basophils # (Auto) 0.1 Thou/mm3 (0.0-0.2); Basophils % (Auto) 0 % (0-2.5); Eosinophils # (Auto) 0.1 Thou/mm3 (0.0-0.5); Eosinophils % (Auto) 1 % (0-10); Hematocrit 29.9 % (41.0-53.0); Immature Granulocytes % (Auto) 1 % (0-0); Immature Granulocytes Auto 0.11 Thou/mm3 (0.00-0.00); Lymphocytes # (Auto) 1.3 Thou/mm3 (1.0-4.8); Lymphocytes % (Auto) 8 % (10-50); Mean Corpuscular HGB Conc 30.1 g/dl (31.0-37.0); Mean Corpuscular Hemoglobin 28.7 pg (25.0-35.0); Mean Corpuscular Volume 95 fL (80-100); Monocytes # (Auto) 1.2 Thou/mm3 (0.0-0.8); Monocytes % (Auto) 7 % (0-12); Neutrophils # (Auto) 14.2 Thou/mm3 (1.8-7.7); Neutrophils % (Auto) 84 % (37-80); Nucleated Red Blood Cell % 0 /100 WBC (0); Platelet Count 430 Thou/mm3 (140-440); RDW Standard Deviation 52.9 fL (35.1-43.9); Red Blood Count 3.14 Miln/mm3 (4.50-5.90)
[2024-10-18 05:20] LABS: Lactate (Lactic Acid) 4.9 mMol/L (0.4-2.0)
[2024-10-18 05:51] LABS: Glucose Estimated Average 94 mg/dL (80-131); Hemoglobin A1C 4.9 % Hgb (4.8-6.0)
[2024-10-18 06:00] VITALS: BMI 23.3
[2024-10-18 06:12] LABS: Alanine Aminotransferase 12 U/L (10-49); Albumin, Serum 3.7 gm/dL (3.4-4.8); Albumin/Globulin Ratio 0.7 (1.2-2.2); Alkaline Phosphatase 94 U/L (46-116); Anion Gap 12 (7-16); Aspartate Amino Transferase 22 U/L (0-34); BUN/Creatinine Ratio 28 Ratio (12-20); Bilirubin,Total 0.3 mg/dL (0.3-1.2); Blood Urea Nitrogen 39 mg/dL (9-23); Calcium 9.6 mg/dL (8.3-10.6); Calcium (Corrected) 9.8 mg/dL (8.5-10.1); Cardiac Risk Estimate 2.8 RATIO (4.0-6.7); Chloride 105 mMol/L (98-107); Cholesterol 86 mg/dL (132-200); Creatinine (Component) 1.4 mg/dL (0.6-1.3); Estimated Creatinine Clearance 50.8 mL/min (>60); Globulin 5.3 gm/dL (2.3-3.5); Glucose 99 mg/dL (74-106); HDL Cholesterol 31 mg/dL (40-60); LDL Cholesterol,Calculated 41 mg/dL (0-130); Magnesium 2.1 mg/dL (1.6-2.6); Osmolality,Calculated 286 (275-295); Phosphorous 4.9 mg/dL (2.4-5.1); Potassium 5.4 mMol/L (3.4-5.1); Sodium 139 mMol/L (136-145); Thyroid Stimulating Hormone 2.05 uIU/mL (0.55-4.78); Triglycerides 71 mg/dL (30-150); eGFR 50 See Note
[2024-10-18 08:00] VITALS: BP 141/81; PULSE 69; PULSE 90; RESP 16; TEMP 36.8; O2SAT 97
[2024-10-18 08:15] LABS: Reflex Lactate? Y
[2024-10-18] MEDS: PANTOPRAZOLE INJ 40 MG VIAL IVP (08:18)
[2024-10-18] MEDS: ZINC SULFATE 220 MG CAPSULE GT (08:19)
[2024-10-18] MEDS: CARBIDOPA/LEVODOPA 25/100 MG TABLET 1 TAB GT (08:19)
[2024-10-18] MEDS: SENNA TABLET 1 TAB PO (08:19)
[2024-10-18] MEDS: ASCORBIC ACID 250 MG TABLET 500 MG GT ×2 (08:20→21:11)
[2024-10-18] MEDS: ENOXAPARIN SOD INJ 40 MG/0.4 ML SYRINGE SC (08:21)
[2024-10-18] MEDS: cefTRIAXone 1,000 MG in SODIUM CHLORIDE 0.9% (Popper) 50 ML 100 MG IV (08:22)
[2024-10-18] MEDS: RINGERS LACTATED 1000 ML 1,000 ML 999 ML IV (08:33)
--- NOTE | 2024-10-18 08:42 | ESPR_ITS ---
<Statement entered by Espinoza Montes MD - 10/18/24 13:28> Patient was seen and examined at the bedside. Patient appears to be mildly altered however conversational. Blood cultures grew GNR bacteremia 1 out of 2. Patient lactate was elevated this morning. Received 1 L bolus of LR x 1. Will follow-up on the lactic acid. Patient has multiple chronic wounds on both lower extremities therefore foot x-ray was ordered to be followed up. PEG tube feedings were started based on dietitian recommendations. Kidney functions chronically elevated bun 39 and creatinine 1.4. A1c came 4.9. Will continue with antibiotics and follow-up with final cultures. Will likely perform Snell clamp trial and try to remove Snell catheter before discharge. All labs and orders were reviewed. I saw and examined the patient, and I agree with current management stated by Dr Modesto MD,PGY1. Plan of care was discussed with the attending physician and resident physician. Disclaimer: Despite multiple revisions, due to the dictation software being used, the document bellow may not be free of grammatical errors including phonetic/typographic errors. However, this does not deter from our commitment to providing health care in the patient's best interest in mind. Dr. Jyoti MD, PGY 2 Documentation for date of: 10/18/24 Subjective Subjective Interval history: Overnight team reported patient was in pain bilaterally in his foot therefore additional [place] was given. Patient is seen and examined at bedside this morning. Patient is currently saturating above 95% on room air, patient is alert & oriented x3. Pt denies any chest pain or abdominal pain. However he states that he has intermitten shooting pain bilaterally in the heel of his feet. foot xrays were ordered and there is no evidence of cortical bone destruction. Pt's daughter Lakesha called and spoke to her over the phone and updated her. Per daughter pt was recently admitted at [facility] and stroke work was done, he was found to have a fungal UTI there and underwent treatment. Per daughter, Pt never had any problems with voiding and she is unsure why he was sent back to the facility with a snell catheter. Prior to the [facility] admission, pt would use briefs or pads. Will order clamping trial and if pt is able to void then will remove the snell. Pt repeat lactic acid is 4.9, Pt is currently on antibiotics. Exam Vital Signs Temp Pulse Resp BP Pulse Ox O2 Del Method O2 Flow Rate 98.3 F 93 24 H 118/80 99 Nasal Cannula 2 10/18/24 04:00 10/18/24 04:00 10/18/24 04:00 10/18/24 04:00 10/18/24 04:00 10/18/24 04:00 10/18/24 04:00 Narrative Exam GENERAL: A&Ox2, Pt appears to be in distress from pain but is unable to localized NEURO: no focal neurological deficits noted HEENT: Atraumatic, Normocephalic. mucous membranes moist. Eyes open, symmetrical, & clear HEART: Normal Heart Sounds LUNGS: Clear to auscultation with no wheezing or crackles. ABDOMEN: soft, non-distended, non-tender, bowel sounds heard, no guarding or rebound tenderness SKIN: No Rash or ecchymoses, sacral stage 1 pressure ulcer EXTREMITIES: No edema, tenderness, able to move all 4 extremities, Pt has wound bilaterally on LE and feet with bandages Objective Labs 10/20/24 15:00 10/20/24 15:00 Labs: Laboratory Results - last 24 hr 10/17/24 10/17/24 10/17/24 13:12 14:25 16:41 WBC 17.6 H RBC 3.31 L Hgb 9.4 L Hct 30.4 L MCV 92 MCH 28.4 MCHC 30.9 L RDW Std Deviation 50.7 H Plt Count 402 Neut % (Auto) 78 Lymph % (Auto) 11 Boyd % (Auto) 8 Eos % (Auto) 2 Baso % (Auto) 1 Neut # (Auto) 13.8 H Lymph # (Auto) 1.9 Boyd # (Auto) 1.5 H Eos # (Auto) 0.3 Baso # (Auto) 0.1 Immature Gran # (Auto) 0.11 H Absolute Nucleated RBC 0.00 Immature Gran % 1 H Nucleated RBC % 0 PT 12.1 INR 1.1 APTT 29.9 Sodium 134 L Potassium 5.2 H Chloride 101 Carbon Dioxide 22.4 Anion Gap 11 BUN 39 H Creatinine 1.4 H Estim Creat Clear Calc 51.3 L eGFR 50 L BUN/Creatinine Ratio 28 H Glucose [address] Glu mg/dL Hemoglobin A1c Calculated Osmolality 278 Lactic Acid 3.3 H Calcium 9.6 Corrected Calcium 9.8 Phosphorus Magnesium 2.1 Total Bilirubin 0.3 AST 16 ALT < 7 L Alkaline Phosphatase 72 Total Creatine Kinase < 15 L Troponin I < 0.020 Total Protein 9.0 H Albumin 3.7 Globulin 5.3 H Albumin/Globulin Ratio 0.7 L Triglycerides Cholesterol LDL Cholesterol, Calc HDL Cholesterol Cholesterol/HDL Ratio TSH Ur Collection Type Clean Catch Urine Color Lt-Yellow Urine Clarity Clear Urine pH 6.5 Ur Specific Mchenry 1.038 H Urine Protein 1+ A Urine Glucose (UA) Negative Urine Ketones Negative Urine Blood 1+ A Urine Nitrite Negative Urine Bilirubin Negative Urine Urobilinogen (Auto) Negative Ur Leukocyte Esterase Positive Urine RBC 11 H Urine WBC 62 H Ur Squamous Epith Cells 0 Urine Bacteria Rare Urine Opiates Screen Positive A Urine Fentanyl Screen Negative Ur Barbiturates Screen Negative U Amphetamin/Meth Scrn Negative U Benzodiazepines Scrn Negative U Cocaine Metab Screen Negative U Marijuana (THC) Screen Negative 10/18/24 04:30 WBC 17.0 H RBC 3.14 L Hgb 9.0 L Hct 29.9 L MCV 95 MCH 28.7 MCHC 30.1 L RDW Std Deviation 52.9 H Plt Count 430 Neut % (Auto) 84 H Lymph % (Auto) 8 L Boyd % (Auto) 7 Eos % (Auto) 1 Baso % (Auto) 0 Neut # (Auto) 14.2 H Lymph # (Auto) 1.3 Boyd # (Auto) 1.2 H Eos # (Auto) 0.1 Baso # (Auto) 0.1 Immature Gran # (Auto) 0.11 H Absolute Nucleated RBC 0.00 Immature Gran % 1 H Nucleated RBC % 0 PT INR APTT Sodium 139 Potassium 5.4 H Chloride 105 Carbon Dioxide 22.0 Anion Gap 12 BUN 39 H Creatinine 1.4 H Estim Creat Clear Calc 50.8 L eGFR 50 L BUN/Creatinine Ratio 28 H Glucose [address] Glu mg/dL 94 Hemoglobin A1c 4.9 Calculated Osmolality 286 Lactic Acid 4.9 H* Calcium 9.6 Corrected Calcium 9.8 Phosphorus 4.9 Magnesium 2.1 Total Bilirubin 0.3 AST 22 ALT 12 Alkaline Phosphatase 94 D Total Creatine Kinase Troponin I Total Protein 9.0 H Albumin 3.7 Globulin 5.3 H Albumin/Globulin Ratio 0.7 L Triglycerides 71 Cholesterol 86 L LDL Cholesterol, Calc 41 HDL Cholesterol 31 L Cholesterol/HDL Ratio 2.8 L TSH 2.05 Ur Collection Type Urine Color Urine Clarity Urine pH Ur Specific Mchenry Urine Protein Urine Glucose (UA) Urine Ketones Urine Blood Urine Nitrite Urine Bilirubin Urine Urobilinogen (Auto) Ur Leukocyte Esterase Urine RBC Urine WBC Ur Squamous Epith Cells Urine Bacteria Urine Opiates Screen Urine Fentanyl Screen Ur Barbiturates Screen U Amphetamin/Meth Scrn U Benzodiazepines Scrn U Cocaine Metab Screen U Marijuana (THC) Screen Quality Measures Quality Measures none Advance care planning discussed with:: child Assessment & Plan Assessment Current Active Medications: Generic Name Dose Route Start Last Admin Trade Name Freq PRN Reason Stop Dose Admin Acetaminophen 650 mg 10/17/24 16:58 Acetaminophen Supp 650 Mg Supp MA 11/16/24 16:17 Q6HR PRN FEVER>100.4 Protocol Acetaminophen 650 mg 10/17/24 16:59 10/17/24 21:47 Acetaminophen 325 Mg Tablet PO 11/16/24 16:17 650 mg Q6H PRN Administration Fever >100.4 Hydrocodone Bitart/Acetaminophen 1 tab 10/17/24 19:13 10/17/24 22:58 Hydrocodone/Apap 5/325 Tablet GT 10/22/24 19:12 1 tab Q6HR PRN Administration Moderate Pain 4-10 Ascorbic Acid 500 mg 10/17/24 21:00 10/18/24 08:20 Ascorbic Acid 250 Mg Tablet GT 11/16/24 20:59 500 mg BID TERRY Administration Carbidopa/Levodopa 1 tab 10/18/24 09:00 10/18/24 08:19 Carbidopa/Levodopa 25/100 Mg Tablet GT 11/17/24 08:59 1 tab QDAY TERRY Administration Dextrose 25 ml 10/17/24 19:09 Dextrose 50%-Water Inj 50 Ml Syringe IV 11/16/24 19:08 Q15MIN PRN BG 50-70 responsive npo pt Dextrose 50 ml 10/17/24 19:09 Dextrose 50%-Water Inj 50 Ml Syringe IV 11/16/24 19:08 Q15MIN PRN BG <50 OR BG <70 & pt unresponsive Enoxaparin Sodium 40 mg 10/18/24 09:00 10/18/24 08:21 Enoxaparin Sod Inj 40 Mg/0.4 Ml Syringe SC 11/01/24 08:59 40 mg QDAY TERRY Administration Gabapentin 300 mg 10/18/24 09:00 10/18/24 08:21 Gabapentin 300 Mg Capsule GT 11/17/24 08:59 300 mg QDAY TERRY Administration Glucagon 1 mg 10/17/24 19:09 Glucagon Inj 1 Mg Vial IM Q15MIN PRN BG <70, and no IV access Ceftriaxone Sodium 1,000 mg/ 50 mls @ 100 mls/hr 10/17/24 16:59 10/18/24 08:22 Sodium Chloride IV 10/24/24 16:58 100 mls/hr QDAY TERRY Administration Doxycycline Hyclate 100 mg/ 100 mls @ 100 mls/hr 10/17/24 21:00 10/17/24 21:33 Sodium Chloride IV 10/24/24 20:59 100 mls/hr BID TERRY Administration Lactated Ringer's 1,000 mls @ 999 mls/hr 10/18/24 08:18 10/18/24 08:33 Lactated Ringers IV 10/18/24 09:18 999 mls/hr .Q1H1M ONE Administration Miconazole Nitrate 0 gm 10/17/24 21:00 10/17/24 22:40 Miconazole Nitrate Cr 2% 15 Gm Tube TOP 11/16/24 20:59 Not Given BID TERRY Mirtazapine 7.5 mg 10/17/24 21:00 10/17/24 22:40 Mirtazapine 15 Mg Tablet GT 11/16/24 20:59 7.5 mg HS TERRY Administration Ondansetron HCl 4 mg 10/17/24 13:10 Ondansetron Inj 2 Mg/Ml Inj 2 Ml IV 11/16/24 13:09 Q4HR PRN NAUSEA OR VOMITING Pantoprazole Sodium 40 mg 10/18/24 09:00 10/18/24 08:18 Pantoprazole Inj 40 Mg Vial IVP 11/17/24 08:59 40 mg QDAY TERRY Administration Sennosides 1 tab 10/18/24 09:00 10/18/24 08:19 Senna Tablet PO 11/17/24 08:59 1 tab QDAY TERRY Administration Protocol Zinc Sulfate 220 mg 10/18/24 09:00 10/18/24 08:19 Zinc Sulfate 220 Mg Capsule GT 11/17/24 08:59 220 mg QDAY TERRY Administration Plan Mr. Aguila is an 79-year-old male with past medical history significant for dysphagia s/p G-tube dependence, type 2 diabetes, hypertension, paroxysmal afib, CAD, hyperlipidemia, PTSD, GERD, BPH and Parkinson disease who was brought from [facility] due to altered mental status. Pt is admitted to the hospital for CVA rule out and sepsis secondary to UTI. #Acute encephalopathy - likely multifactorial - resolved #Acute CVA -Ruled out -Per nursing facility staff pt was drowsy and not easily arousable -Urine tox: Opioids positive Teleneuro was consulted, with recommendation of MRI pending to rule out CVA. CVA r/o -LKW:10/17/2024 11:40:00 -NIHSS Score: Patient is not a candidate for Thrombolytic. -Tele neuro consulted, recommendations appreciated -CT head: Negative for acute hemorrhage, mass effect or midline shift -CTA head and neck:Very atretic left vertebral artery with areas of no opacification of the neck, recommend carotid vertebral sonography follow-up to assess for retrograde flow left vertebral artery, No cerebral large vessel arterial occlusions or thrombus MRI with MRA: Negative for acute hemorrhage mass effect or midline shift, No acute infarct, Moderate chronic microvascular white matter change Plan: - Neuro checks q4HR - Keep head of bed elevated at 30 degrees -?limit sedating meds -Euglycemia and Avoid Hyperthermia (PRN Acetaminophen) -?allow permissive HTN for first 24 hours than slowly and gradually goal normotension thereafter -?echo with bubble study ordered- pending read - follow up lipid panel, HbA1c, TSH with free T4- all within normal limits ?-Referral to PT/OT/speech therapy #Sepsis 2/2 to #UTI #Bilateral heel ulcer SIRS 4/4 met: tachycardia, tachypnea, fever, leukocytosis, lactic acid 3.3 -Urinalysis: 1+ urine blood, leukocyte esterase positive, urine RBC 11, urine WBC 62 -Pt has a chronic Snell catheter, presented to the ED with a snell in place. -replaced the snell with a new one in ED on 10/18 -Pt has foul smelling non heeling bilateral heel ulcer, wound care is ordered. -X-ray is negative for cortical bone destruction -urine culture and blood cultures pending (prelim 1/2 BC grow GNR) -IV fluids given -repeat lactic acid is 4.9 -Ceftriaxone and doxycycline ordered 10/17- #Normocytic Anemia -On admission Hgb 9.4 and Hct 30.4 -Previous visit Hgb above 14 -no signs of active bleeding, will continue to monitor and consult GI if Hgb continues to drop #GERD #Dysphagia s/p G-tube dependence -Pt is started on pantropazole and will resume tube feeds #Type 2 diabetes -A1c 4.6 on 10/17/24 -will hold insulin sliding scale today, will resume tomorrow #Primary Hypertension #Paroxysmal a-fib #CAD #hyperlipidemia -med rec pending , BP is stable #PTSD #Parkinson disease -resumed home carbidopa-levodopa 25-100 mg #BPH -Chronic Snell, Pt arrived from the facility with a snell. -Pt has a UTI therefore snell was replaced in the ED on 10/19 -Per daughter, Pt is able to void without difficulty and previously have used briefs and pads. Pt was discharged [facility] with foleyabout 3 months ago. Health Maintenance Disposition: Telemetry DVT Prophylaxis: enoxaparin 40mg Qdaily GI Prophylaxis: Pantoprozol-40 IV Qday Diet: tube feeds resumed Lines: Peripheral lines Code status: Full Assessment and plan discussed with my senior resident Dr. Montes & attending physician Dr. Giovanna Salvador (PGY-1)- Internal medicine resident Attending Provider Attestation/Addendum Patient seen and examined. He is 79-year-old male patient with Parkinson's disease, atrial fibrillation admitted for acute encephalopathy to rule out CVA. Also being treated for UTI. I discussed with and supervised the resident physician who took care of this patient. I agree with the assessment and plan as above.
[2024-10-18] MEDS: DOXYCYCLINE INJ 100 MG in SODIUM CHLORIDE 0.9% (POP) 100 ML IV ×2 (10:12→21:11)
--- NOTE | 2024-10-18 10:43 | PC.SS ---
Patient Krishna Aguila is a 79 Year old male admitted for CVA Rule Out, Sepsis. SS contacted patient's daughter Lilly Aguila. She reports patient resides at [facility] and has been there since Jul. Lilly reports her sister, Lakesha Herron is patient's surrogate decision maker [phone]. Lilly reports that patient is bed bound and utilizes a wheelchair to assist with ambulation. Patient also needs assistance completing his ADL's. When patient is medically cleared he will return back to [facility] SS will assist with transportation. Discharge Plan: Home Next of Kin: daughter, Lakesha Herron [phone]
[2024-10-18 10:48] VITALS: BMI 23.5
--- NOTE | 2024-10-18 10:58 | XR_ITS ---
Examination: Foot bilateral, 6 views Technique: AP, oblique, lateral views each foot total 6 views Date and time of exam: October 18, 2024 1101 hours INDICATIONS: Nonhealing wounds both feet this month FINDINGS: Severe osteopenia No keren cortical bone destruction involving either foot No fractures No opaque foreign bodies IMPRESSION: No keren cortical bone destruction involving either foot Consider MRI right and left foot without contrast follow-up as clinically warranted
[2024-10-18] MEDS: HYDROcodone/APAP 5/325 TABLET 1 TAB GT ×2 (11:03→18:33)
--- NOTE | 2024-10-18 11:27 | PC.DIETICIAN ---
Nutrition prescription Glucerna 1.2 at 40 ml/hr via PEG tube by pump. Advance 10 ml every 4 hrs to goal rate of 75 ml/hr x 22 hrs. If no IV fluids, water flushes of 20 ml/hr x 22 hrs (or per MD). -Hold TF for one hour before and after carbidopa-levodopa administration-
[2024-10-18 12:00] VITALS: BP 99/71; PULSE 94; RESP 17; TEMP 37.1; O2SAT 98
[2024-10-18 12:46] LABS: Sed Rate (ESR) 68 mm/hr (0-20)
--- NOTE | 2024-10-18 13:43 | PC.PT ---
PT eval only. Patient is bedbound for the last 2 years and has not stood or ambulated in 2 years. Patient has required Dereck lift transfers for the last 2 years. Patient is at his baseline.
--- NOTE | 2024-10-18 15:02 | PC.SS ---
Rounding Note; Lactic acid elevated.
[2024-10-18 16:00] VITALS: BP 110/67; PULSE 81; PULSE 88; RESP 18; TEMP 36.7; O2SAT 96
[2024-10-18 20:00] VITALS: BP 131/72; PULSE 80; RESP 20; TEMP 37.2; O2SAT 96
[2024-10-18] MEDS: BALSAM PERU/CASTOR OIL (Venelex) 60 GM TUBE TOP (21:11)
[2024-10-18] MEDS: MIRTAZAPINE 15 MG TABLET 7.5 MG GT (21:11)
--- NOTE | 2024-10-18 22:34 | PD.NEUROPROG ---
Documentation for date of: 10/18/24 Subjective Subjective Interval history: The patient was seen in telemetry today., Reportedly confused intermittently and tremulous at rest. Refusing to get poked for fingersticks and insulin. Exam - Neurology Vital Signs Temp Pulse Resp BP Pulse Ox O2 Del Method O2 Flow Rate 99.0 F 80 20 131/72 H 96 Room Air 2 10/18/24 20:00 10/18/24 20:00 10/18/24 20:00 10/18/24 20:00 10/18/24 20:00 10/18/24 20:00 10/18/24 04:00 Narrative Exam GENERAL APPEARANCE: Well hydrated, well-nourished in no acute distress. HEENT: Normocephalic, atraumatic, extraocular movements intact. Pupils: Equal reacting to light NECK: Supple, no JVD or bruits. CARDIOVASULAR: Heart: S1, S2 heard, regular without S3-S4 or murmur no rubs or gallops. LUNGS/CHEST: Clear to auscultation bilaterally. No rails, rhonchi, or wheezing. Normal inspection. ABDOMEN: Soft, nontender, with normal bowel sounds. No pulsatile masses. No rebound, rigidity, or guarding. Normal inspection and palpation. EXTREMITIES: Normal inspection and palpation. No edema, clubbing or cyanosis. SKIN: Warm and dry without rashes. Normal inspection. MUSCULOSKELETAL: No cervical, thoracic, lumbar or midline bony tenderness. Normal inspection. NEURO: Alert, awake and oriented x2. Cranial nerves: II through XII grossly intact. Speech and language: Normal with no dysarthria or dysphasia. Motor system: Tone and bulk: Normal in the upper extremities: Strength: Moves both upper extremities, lower extremities: 3/5 with atrophy. He has resting tremors, bradykinesia, rigidity in both upper and lower extremities. deep tendon reflexes: 1+ bilaterally symmetrical. Plantar reflex: Downgoing bilaterally. Sensory system: Intact to pinprick sensation bilaterally. Rest of the exam: Limited. no signs of meningeal irritation noted. PSYCHIATRIC: Normal mood and affect. Objective Labs 10/18/24 04:30 10/18/24 04:30 Labs: Laboratory Results - last 24 hr 10/18/24 04:30 WBC 17.0 H RBC 3.14 L Hgb 9.0 L Hct 29.9 L MCV 95 MCH 28.7 MCHC 30.1 L RDW Std Deviation 52.9 H Plt Count 430 Neut % (Auto) 84 H Lymph % (Auto) 8 L Wetzel % (Auto) 7 Eos % (Auto) 1 Baso % (Auto) 0 Neut # (Auto) 14.2 H Lymph # (Auto) 1.3 Wetzel # (Auto) 1.2 H Eos # (Auto) 0.1 Baso # (Auto) 0.1 Immature Gran # (Auto) 0.11 H Absolute Nucleated RBC 0.00 Immature Gran % 1 H Nucleated RBC % 0 ESR 68 H Sodium 139 Potassium 5.4 H Chloride 105 Carbon Dioxide 22.0 Anion Gap 12 BUN 39 H Creatinine 1.4 H Estim Creat Clear Calc 50.8 L eGFR 50 L BUN/Creatinine Ratio 28 H Glucose [address] Glu mg/dL 94 Hemoglobin A1c 4.9 Calculated Osmolality 286 Lactic Acid 4.9 H* Calcium 9.6 Corrected Calcium 9.8 Phosphorus 4.9 Magnesium 2.1 Total Bilirubin 0.3 AST 22 ALT 12 Alkaline Phosphatase 94 D C-Reactive Prot, Quant 19.0 H Total Protein 9.0 H Albumin 3.7 Globulin 5.3 H Albumin/Globulin Ratio 0.7 L Triglycerides 71 Cholesterol 86 L LDL Cholesterol, Calc 41 HDL Cholesterol 31 L Cholesterol/HDL Ratio 2.8 L TSH 2.05 Assessment & Plan Assessment and plan (1) Parkinsons disease: Status: Chronic Assessment and plan: No need to change anything, continue with the carbidopa levodopa 25/100: 3 times a day Continue with range of motion exercises in the lower extremities to prevent contracture From worsening spasticity and rigidity (2) Essential hypertension: Status: Chronic (3) Frequent falls: Status: Chronic Assessment and plan: Secondary to underlying Parkinson's disease MRI brain: Negative for acute infarction, moderate chronic white matter changes Patient has been bedridden at baseline (4) Encephalopathy acute: Status: Resolved Assessment and plan: Likely from sepsis/pneumonia/UTI Continue with antibiotics as per primary team
[2024-10-19] VITALS: BP 125/67; PULSE 80; PULSE 90; RESP 18; TEMP 36.3; O2SAT 95
--- NOTE | 2024-10-19 00:09 | PC.NURSE ---
DR. ARANA MADE AWARE OF PT REFUSING BLOOD DRAW FOR LACTIC ACID. MD AT BEDSIDE STATES HE WILL PLACE A REPEAT LACTIC ACID FOR MORNING BLOOD DRAW
[2024-10-19] MEDS: HYDROcodone/APAP 5/325 TABLET 1 TAB GT ×3 (00:22→14:30)
[2024-10-19 04:00] VITALS: BP 108/77; PULSE 80; PULSE 81; RESP 18; TEMP 36.4; O2SAT 95
[2024-10-19 05:09] VITALS: BMI 26.4
--- NOTE | 2024-10-19 05:56 | PC.NURSE ---
DR. ARANA MADE AWARE OF PT REFUSING BLOOD DRAW AND BSFS. PT STATES LATER WHEN I WAKE UP NO NEW ORDERS BY
[2024-10-19 08:00] VITALS: BP 115/74; PULSE 80; PULSE 83; RESP 14; TEMP 36.8; O2SAT 98
--- NOTE | 2024-10-19 09:40 | CHAP ---
Visited with patient and gave words of comfort, encouragement and prayer.
[2024-10-19] MEDS: BALSAM PERU/CASTOR OIL (Venelex) 60 GM TUBE TOP ×2 (09:55→21:31)
[2024-10-19] MEDS: ASCORBIC ACID 250 MG TABLET 500 MG GT ×2 (09:55→21:30)
[2024-10-19] MEDS: SENNA TABLET 1 TAB PO (09:56)
[2024-10-19] MEDS: CARBIDOPA/LEVODOPA 25/100 MG TABLET 1 TAB GT (09:56)
[2024-10-19] MEDS: DOXYCYCLINE INJ 100 MG in SODIUM CHLORIDE 0.9% (POP) 100 ML IV ×2 (09:58→21:30)
[2024-10-19] MEDS: GABAPENTIN 300 MG CAPSULE GT (09:58)
[2024-10-19] MEDS: cefTRIAXone 1,000 MG in SODIUM CHLORIDE 0.9% (Popper) 50 ML 100 MG IV (09:58)
[2024-10-19] MEDS: PANTOPRAZOLE INJ 40 MG VIAL IVP (09:59)
[2024-10-19] MEDS: ZINC SULFATE 220 MG CAPSULE GT (10:00)
[2024-10-19] MEDS: MICONAZOLE NITRATE CR 2% 15 GM TUBE TOP ×2 (10:07→21:30)
--- NOTE | 2024-10-19 11:40 | PC.NURSE ---
Patient refusing morning lab draws, tried once at 0500 and again at 0830. Dr. Montes notified. Pt refusing enoxaprin, Dr. Montes notified. Patient refusing blood glucose checks. Dr. Montes notified.
--- NOTE | 2024-10-19 11:40 | PCS.ST ---
No po feeding recommended. PMHx. of Recurrent Aspiration PNA informed the patient's daughter. Although pt was requesting po nutrition, his daughter was not agreeable with that, concerned of aspiration. No swallow assessment performed. ST discussed the case yesterday with RD. Functional receptive-expressive language skills. No further ST services warranted.
[2024-10-19 12:00] VITALS: BP 113/57; PULSE 88; PULSE 90; RESP 22; TEMP 36.6; O2SAT 98
--- NOTE | 2024-10-19 14:14 | ESPR_ITS ---
<Statement entered by Espinoza Montes MD - 10/19/24 21:35> Patient was seen and examined at the bedside. Patient refused labs earlier this morning and reported that he does not want to be poked quite frequently. Patient appeared more alert and oriented. Daughter was contacted and she reported that patient received PEG tube recently previous month possibly and Snell catheter was placed in SNF however patient did not had complaints or difficulty in urination. Voiding trial was performed today. Will continue with IV antibiotic for GNR bacteremia and will wait for final speciation. Blood pressure was stable. Speech evaluation has been ordered to evaluate for p.o. feeding besides tube feeds. All labs and orders were reviewed. I saw and examined the patient, and I agree with current management stated by Dr Modesto MD,PGY1. Plan of care was discussed with the attending physician and resident physician. Disclaimer: Despite multiple revisions, due to the dictation software being used, the document bellow may not be free of grammatical errors including phonetic/typographic errors. However, this does not deter from our commitment to providing health care in the patient's best interest in mind. Dr. Kyra MD, PGY 2 Documentation for date of: 10/19/24 Subjective Subjective Interval history: No acute overnight events reported. Patient seen and examined at bedside this morning. Patient appears to be mildly agitated and minimally answering questions. Patient is alert oriented x 3, he asks if he can go home and does not want to [facility] to [facility]. Patient denies any chest pain or abdominal pain, also denies any shortness of breath or dizziness. Patient has refused all labs, finger glucose checks and Lovenox for DVT prophylaxis. Spoke to patient's daughter Lakesha this morning who stated that patient has PEG tube and Snell catheter was placed this August during his hospital admission at [facility]. Prior to that patient had no difficulty with eating or swallowing and urinating according to the daughter. Ordered a trial of clamping the Snell catheter and patient was able to urinate therefore will order removal of Snell catheter and continue to monitor via bladder scans every 4 hours and try voiding trial. Patient has no complaints. Vital signs are stable. Exam Vital Signs Temp Pulse Resp BP Pulse Ox O2 Del Method O2 Flow Rate 97.8 F 88 22 H 113/57 L 98 Room Air 2 10/19/24 12:00 10/19/24 12:00 10/19/24 12:00 10/19/24 12:00 10/19/24 12:00 10/19/24 12:00 10/18/24 04:00 Narrative Exam GENERAL: A&Ox2, awake, patient is not in distress NEURO: no focal neurological deficits noted HEENT: Atraumatic, Normocephalic. mucous membranes moist. Eyes open, symmetrical, & clear HEART: Normal Heart Sounds LUNGS: Clear to auscultation with no wheezing or crackles. ABDOMEN: soft, non-distended, non-tender, bowel sounds heard, no guarding or rebound tenderness SKIN: No Rash or ecchymoses, sacral stage 1 pressure ulcer EXTREMITIES: No edema, tenderness, able to move all 4 extremities, Pt has wound bilaterally on LE and feet with bandages Objective Labs 10/18/24 04:30 10/18/24 04:30 Quality Measures Quality Measures none Advance care planning discussed with:: patient and child Assessment & Plan Assessment Current Active Medications: Generic Name Dose Route Start Last Admin Trade Name Freq PRN Reason Stop Dose Admin Acetaminophen 650 mg 10/17/24 16:58 Acetaminophen Supp 650 Mg Supp PA 11/16/24 16:17 Q6HR PRN FEVER>100.4 Protocol Acetaminophen 650 mg 10/17/24 16:59 10/17/24 21:47 Acetaminophen 325 Mg Tablet PO 11/16/24 16:17 650 mg Q6H PRN Administration Fever >100.4 Hydrocodone Bitart/Acetaminophen 1 tab 10/17/24 19:13 10/19/24 06:42 Hydrocodone/Apap 5/325 Tablet GT 10/22/24 19:12 1 tab Q6HR PRN Administration Moderate Pain 4-10 Ascorbic Acid 500 mg 10/17/24 21:00 10/19/24 09:55 Ascorbic Acid 250 Mg Tablet GT 11/16/24 20:59 500 mg BID TERRY Administration Balsam [place]/Goldsmith Oil 0 gm 10/18/24 21:00 10/19/24 09:55 Balsam Hernandez/Goldsmith Oil (Venelex) 60 Gm Tube TOP 11/17/24 20:59 1 applicatio BID TERRY Administration Carbidopa/Levodopa 1 tab 10/18/24 09:00 10/19/24 09:56 Carbidopa/Levodopa 25/100 Mg Tablet GT 11/17/24 08:59 1 tab QDAY TERRY Administration Dextrose 25 ml 10/17/24 19:09 Dextrose 50%-Water Inj 50 Ml Syringe IV 11/16/24 19:08 Q15MIN PRN BG 50-70 responsive npo pt Dextrose 50 ml 10/17/24 19:09 Dextrose 50%-Water Inj 50 Ml Syringe IV 11/16/24 19:08 Q15MIN PRN BG <50 OR BG <70 & pt unresponsive Enoxaparin Sodium 40 mg 10/18/24 09:00 10/19/24 10:33 Enoxaparin Sod Inj 40 Mg/0.4 Ml Syringe SC 11/01/24 08:59 Not Given QDAY TERRY Gabapentin 300 mg 10/18/24 09:00 10/19/24 09:58 Gabapentin 300 Mg Capsule GT 11/17/24 08:59 300 mg QDAY TERRY Administration Glucagon 1 mg 10/17/24 19:09 Glucagon Inj 1 Mg Vial IM Q15MIN PRN BG <70, and no IV access Ceftriaxone Sodium 1,000 mg/ 50 mls @ 100 mls/hr 10/17/24 16:59 10/19/24 09:58 Sodium Chloride IV 10/24/24 16:58 100 mls/hr QDAY TERRY Administration Doxycycline Hyclate 100 mg/ 100 mls @ 100 mls/hr 10/17/24 21:00 10/19/24 09:58 Sodium Chloride IV 10/24/24 20:59 100 mls/hr BID TERRY Administration Miconazole Nitrate 0 gm 10/17/24 21:00 10/19/24 10:07 Miconazole Nitrate Cr 2% 15 Gm Tube TOP 11/16/24 20:59 1 applicatio BID TERRY Administration Mirtazapine 7.5 mg 10/17/24 21:00 10/18/24 21:11 Mirtazapine 15 Mg Tablet GT 11/16/24 20:59 7.5 mg HS TERRY Administration Ondansetron HCl 4 mg 10/17/24 13:10 Ondansetron Inj 2 Mg/Ml Inj 2 Ml IV 11/16/24 13:09 Q4HR PRN NAUSEA OR VOMITING Pantoprazole Sodium 40 mg 10/18/24 09:00 10/19/24 09:59 Pantoprazole Inj 40 Mg Vial IVP 11/17/24 08:59 40 mg QDAY TERRY Administration Sennosides 1 tab 10/18/24 09:00 10/19/24 09:56 Senna Tablet PO 11/17/24 08:59 1 tab QDAY TERRY Administration Protocol Zinc Sulfate 220 mg 10/18/24 09:00 10/19/24 10:00 Zinc Sulfate 220 Mg Capsule GT 11/17/24 08:59 220 mg QDAY TERRY Administration Plan Mr. Aguila is an 79-year-old male with past medical history significant for dysphagia s/p G-tube dependence, type 2 diabetes, hypertension, paroxysmal afib, CAD, hyperlipidemia, PTSD, GERD, BPH and Parkinson disease who was brought from [facility] due to altered mental status. Pt is admitted to the hospital for CVA rule out and sepsis secondary to UTI. #Sepsis 2/2 to #UTI #Bilateral heel ulcer SIRS / met: tachycardia, tachypnea, fever, leukocytosis, lactic acid 3.3 -Urinalysis: 1+ urine blood, leukocyte esterase positive, urine RBC 11, urine WBC 62 -Pt has a chronic Snell catheter, presented to the ED with a snell in place. -replaced the snell with a new one in ED on 10/18 -Pt has foul smelling non heeling bilateral heel ulcer, wound care is ordered. -X-ray is negative for cortical bone destruction -urine culture and blood cultures pending (prelim 08/18 BC grow GNR) -IV fluids given -repeat lactic acid is 4.9 on 10/18 -remove snell catheter on 10/19, bladder scan Q4h and voiding trial ordered -Ceftriaxone and doxycycline ordered 10/17- #Acute encephalopathy - likely multifactorial - resolved #Acute CVA -Ruled out -Per nursing facility staff pt was drowsy and not easily arousable -Urine tox: Opioids positive -Teleneuro was consulted -LKW:10/17/2024 11:40:00 -NIHSS Score: Patient is not a candidate for Thrombolytic. -Tele neuro consulted, recommendations appreciated -CT head: Negative for acute hemorrhage, mass effect or midline shift -CTA head and neck:Very atretic left vertebral artery with areas of no opacification of the neck, recommend carotid vertebral sonography follow-up to assess for retrograde flow left vertebral artery, No cerebral large vessel arterial occlusions or thrombus MRI with MRA: Negative for acute hemorrhage mass effect or midline shift, No acute infarct, Moderate chronic microvascular white matter change Plan: - Neuro checks q4HR - Keep head of bed elevated at 30 degrees -?limit sedating meds -Euglycemia and Avoid Hyperthermia (PRN Acetaminophen) -?allow permissive HTN for first 24 hours than slowly and gradually goal normotension thereafter -?echo with bubble study ordered- pending read - follow up lipid panel, HbA1c, TSH with free T4- all within normal limits ?-Referral to PT/OT/speech therapy #Normocytic Anemia -On admission Hgb 9.4 and Hct 30.4 -Previous visit Hgb above 14 -no signs of active bleeding, will continue to monitor and consult GI if Hgb continues to drop #GERD #Dysphagia s/p G-tube dependence -Pt is started on pantropazole and will resume tube feeds -Speech eval is ordered to determine if patient is able to swallow and will consider removal of GJ tube based on swallow evaluation #Type 2 diabetes -A1c 4.6 on 10/17/24 -will hold insulin sliding scale today, will resume tomorrow #Primary Hypertension #Paroxysmal a-fib #CAD #hyperlipidemia -med rec pending , BP is stable #PTSD #Parkinson disease -resumed home carbidopa-levodopa 25-100 mg #BPH -Chronic Snell, Pt arrived from the facility with a snell. -Pt has a UTI therefore snell was replaced in the ED on 10/19 -Per daughter, Pt is able to void without difficulty and previously have used briefs and pads. Pt was discharged home from [facility] with snell Aug 2024. - snell removed on 10/19 Health Maintenance Disposition: Telemetry DVT Prophylaxis: Xarelto 10mg Qdaily GI Prophylaxis: Pantoprozol-40 IV Qday Diet: tube feeds resumed Lines: Peripheral lines Code status: Full Assessment and plan discussed with my senior resident Dr. Montes & attending physician Dr. Ang Salvador (PGY-1)- Internal medicine resident Attending Provider Attestation/Addendum I have discussed and was present for the essential components of the history, physical examination, diagnosis, and treatment plan with the resident. I agree with the patient's care as documented by the resident and amended herein by me. Simba Fry DO. Although this document has been carefully reviewed, there may still be some phonetic and other typographical errors. These errors are purely grammatical due to imperfections in the software program and should not be construed in any way to compromise the substance of the patient's medical care during this visit.
--- NOTE | 2024-10-19 14:37 | PC.NURSE ---
Clamped snell cath per Dr. Salvador. Upon rechecking 4 hours later pt saturated the bed. Pt stated does not feel like has to go to bathroom. Bladder scan with snell clamped after 4 hours was 373mL. When unclamping snell urine started flowing in snell and pt started urinating outside the catheter on the sheet. Dr. Salvador notified
--- NOTE | 2024-10-19 14:41 | PC.SS ---
SS follow up note; Patient is on IV ABX. Pending final cultures.
[2024-10-19 16:00] VITALS: BP 120/61; PULSE 79; PULSE 80; RESP 20; TEMP 36.1; O2SAT 94
--- NOTE | 2024-10-19 16:23 | ECHO_ITS ---
Transthoracic Echo Report Ht (in): 72 Wt (lb): 199 Exam Location: Portable Status: Inpatient Maintenance Welder: VANESSA Sheikh^^^^ Indications: Procedure Performed: BP: 133 / 76 HR: 78 Technical Quality: Fair MEASUREMENTS (Male / Female) Normal Values 2D ECHO LV Diastolic Diameter PLAX 4.4 cm 4.2 - 5.9 / 3.9 - 5.3 cm LV Systolic Diameter PLAX 3.1 cm IVS Diastolic Thickness 0.8 cm 0.6 - 1.0 / 0.6 - 0.9 cm LVPW Diastolic Thickness 0.9 cm 0.6 - 1.0 / 0.6 - 0.9 cm LV Relative Wall Thickness 0.4 LVOT Diameter 1.9 cm Aortic Root Diameter 3.3 cm LA Systolic Diameter LX 4.3 cm 3.0 - 4.0 / 2.7 - 3.8 cm LV Ejection Fraction MOD 4C 56.7 % LV Cardiac Index MOD 4C 3265.3 cm?/min?m? LV Ejection Fraction 4C AL 57.3 % LV Cardiac Index 4C AL 3478.6 cm?/min?m? Ascending Aorta Diameter 3.0 cm DOPPLER AV Peak Velocity 138.0 cm/s AV Peak Gradient 7.6 mmHg AV Mean Gradient 6.0 mmHg AV Velocity Time Integral 23.0 cm AI Peak Velocity 178.0 cm/s AI Peak Gradient 12.7 mmHg AI Pressure Half Time 478.0 ms LVOT Peak Velocity 78.3 cm/s LVOT Peak Gradient 2.5 mmHg LVOT Velocity Time Integral 19.8 cm LVOT Cardiac Index 2032.3 cm?/min?m? AV Area Cont Eq vti 2.4 cm? AV Area Cont Eq pk 1.6 cm? MV Area PHT 5.6 cm? MR Peak Velocity 399.7 cm/s MR Peak Gradient 63.9 mmHg Mitral E Point Velocity 93.2 cm/s Mitral A Point Velocity 36.9 cm/s Mitral E to A Ratio 2.5 LV E' Lateral Velocity 10.4 cm/s Mitral E to LV E' Lateral Ratio 9.0 LV E' Septal Velocity 7.5 cm/s Mitral E to LV E' Septal Ratio 12.4 TR Peak Velocity 292.0 cm/s TR Peak Gradient 34.1 mmHg PV Peak Velocity 99.0 cm/s PV Peak Gradient 3.9 mmHg RVOT Peak Velocity 46.6 cm/s FINDINGS Left Ventricle Normal left ventricular size, wall thickness, systolic function with no obvious regional wall motion abnormalities. There is grade III diastolic dysfunction of the left ventricle (restrictive filling pattern). The left ventricular ejection fraction is normal, estimated at 55-60%. Right Ventricle The right ventricle is normal in size and systolic function. The estimated right ventricular systolic pressure, 48 mmHg. Left Atrium The left atrium is normal by two-dimensional, color flow and Doppler imaging with no structural abnormalities, no thrombus formation present. Right Atrium The right atrium is normal by two-dimensional imaging, color flow and Doppler imaging with no structural abnormalities, no thrombus formation present. Atrial Septum The interatrial septum appears normal with no evidence of a shunt. Aorta The aorta is normal by two-dimensional, color flow and Doppler interrogation. Mitral Valve [id number] mitral regurgitation. Mild mitral annular calcification. Aortic Valve Trace to mild aortic valve regurgitation. Aortic valve sclerosis. Tricuspid Valve There is moderate tricuspid regurgitation. Pulmonic Valve Trivial pulmonic valve regurgitation. Vessels The pulmonary artery appears normal. The inferior vena cava pulmonary and hepatic veins appear normal. Pericardium The pericardium is normal by two-dimensional imaging. There is no significant pericardial effusion. CONCLUSIONS Indication: CVA r/o pt refused bubble Patient refused bubble study and cannot rule out a PFO or ASD. Consider AILYN if high index of clinical suspicion Normal LV size and function with an EF of 55 to 60%. Normal RV size and function. Moderate PAH with RVSP of 48-50 mmHg. Moderate TR. Trace to mild MR. Mild MAC. Mild aortic valve sclerosis without stenosis. Arturo Cheney (Electronically Signed) Final Date: 19 October 2024 23:32
[2024-10-19] MEDS: RIVAROXABAN 10 MG TABLET GT (17:58)
[2024-10-19 20:00] VITALS: BP 128/61; PULSE 80; RESP 22; TEMP 36.1; O2SAT 96
[2024-10-19] MEDS: MIRTAZAPINE 15 MG TABLET 7.5 MG GT (21:30)
--- NOTE | 2024-10-19 23:09 | PD.NEUROPROG ---
Documentation for date of: 10/19/24 Subjective Subjective Interval history: The patient was seen in telemetry today., His mental status is improved today and is not confused as much as yesterday and tremors have calm down as well Exam - Neurology Vital Signs Temp Pulse Resp BP Pulse Ox O2 Del Method O2 Flow Rate 97.0 F 80 22 H 128/61 96 Room Air 2 10/19/24 20:00 10/19/24 20:00 10/19/24 20:00 10/19/24 20:00 10/19/24 20:00 10/19/24 20:00 10/18/24 04:00 Narrative Exam GENERAL APPEARANCE: Well hydrated, well-nourished in no acute distress. HEENT: Normocephalic, atraumatic, extraocular movements intact. Pupils: Equal reacting to light NECK: Supple, no JVD or bruits. CARDIOVASULAR: Heart: S1, S2 heard, regular without S3-S4 or murmur no rubs or gallops. LUNGS/CHEST: Clear to auscultation bilaterally. No rails, rhonchi, or wheezing. Normal inspection. ABDOMEN: Soft, nontender, with normal bowel sounds. No pulsatile masses. No rebound, rigidity, or guarding. Normal inspection and palpation. EXTREMITIES: Normal inspection and palpation. No edema, clubbing or cyanosis. SKIN: Warm and dry without rashes. Normal inspection. MUSCULOSKELETAL: No cervical, thoracic, lumbar or midline bony tenderness. Normal inspection. NEURO: Alert, awake and oriented x2. Cranial nerves: II through XII grossly intact. Speech and language: Normal with no dysarthria or dysphasia. Motor system: Tone and bulk: Normal in the upper extremities: Strength: Moves both upper extremities, lower extremities: 3/5 with atrophy. He has resting tremors, bradykinesia, rigidity in both upper and lower extremities. deep tendon reflexes: 1+ bilaterally symmetrical. Plantar reflex: Downgoing bilaterally. Sensory system: Intact to pinprick sensation bilaterally. Rest of the exam: Limited. no signs of meningeal irritation noted. PSYCHIATRIC: Normal mood and affect. Objective Labs 10/18/24 04:30 10/18/24 04:30 Assessment & Plan Assessment and plan (1) Parkinsons disease: Status: Chronic Assessment and plan: No need to change anything, continue with the carbidopa levodopa 25/100: 3 times a day Continue with range of motion exercises in the lower extremities to prevent contracture From worsening spasticity and rigidity (2) Essential hypertension: Status: Chronic Assessment and plan: Continue with current meds (3) Frequent falls: Status: Chronic Assessment and plan: Secondary to underlying Parkinson's disease progression MRI brain: Negative for acute infarction, moderate chronic white matter changes Patient has been bedridden at baseline (4) Encephalopathy acute: Status: Resolved Assessment and plan: Likely from sepsis/pneumonia/UTI Continue with antibiotics as per primary team
[2024-10-20] VITALS: BP 126/77; PULSE 80; PULSE 81; RESP 20; TEMP 36.4; O2SAT 97
[2024-10-20 04:00] VITALS: BP 114/62; PULSE 80; PULSE 88; RESP 19; TEMP 36.6; O2SAT 98
[2024-10-20] MEDS: HYDROcodone/APAP 5/325 TABLET 1 TAB GT ×2 (06:29→17:31)
[2024-10-20 08:00] VITALS: BP 114/61; PULSE 80; PULSE 82; RESP 21; TEMP 36.8; O2SAT 100
[2024-10-20] MEDS: BALSAM PERU/CASTOR OIL (Venelex) 60 GM TUBE TOP ×2 (08:03→22:26)
[2024-10-20] MEDS: RIVAROXABAN 10 MG TABLET GT (08:04)
[2024-10-20] MEDS: CARBIDOPA/LEVODOPA 25/100 MG TABLET 1 TAB GT (08:04)
[2024-10-20] MEDS: GABAPENTIN 300 MG CAPSULE GT (08:04)
[2024-10-20] MEDS: ZINC SULFATE 220 MG CAPSULE GT (08:04)
[2024-10-20] MEDS: SENNA TABLET 1 TAB PO (08:04)
[2024-10-20] MEDS: ASCORBIC ACID 250 MG TABLET 500 MG GT ×2 (08:04→22:15)
[2024-10-20] MEDS: MICONAZOLE NITRATE CR 2% 15 GM TUBE TOP ×2 (08:05→22:26)
[2024-10-20] MEDS: cefTRIAXone 1,000 MG in SODIUM CHLORIDE 0.9% (Popper) 50 ML 100 MG IV (09:20)
[2024-10-20 12:00] VITALS: BP 153/80; PULSE 82; PULSE 93; RESP 19; TEMP 36.5; O2SAT 97
--- NOTE | 2024-10-20 13:17 | PCS.ST ---
Swallow evaluation completed. No apparent oropharyngeal dysphagia, however, pt refuses to follow aspiration precautions putting him at risk of aspiration. Dysphagia 3 diet was started. Supervision during meals.
--- NOTE | 2024-10-20 14:51 | ESPR_ITS ---
<Statement entered by Espinoza Montes MD - 10/20/24 15:06> Patient was seen and examined at the bedside. Patient reported that he does not want to get blood draws as he wants to eat and want to drink sodas. Speech evaluation recommended to start mechanical dysphagia diet and once patient is able to tolerate we can consider consulting GI and remove the PEG tube. Patient also passed voiding trial and Snell catheter was removed. Patient will be continued on 2 g ceftriaxone for GNR Proteus mirabilis bacteremia. We requested the patient to have labs today as we are not able to regulate his current white count and kidney functions. Daughter was updated. Patient will need outpatient cardiology follow-up for pacemaker. All labs and orders were reviewed. I saw and examined the patient, and I agree with current management stated by Dr Modesto MD,PGY1. Plan of care was discussed with the attending physician and resident physician. Disclaimer: Despite multiple revisions, due to the dictation software being used, the document bellow may not be free of grammatical errors including phonetic/typographic errors. However, this does not deter from our commitment to providing health care in the patient's best interest in mind. Dr. Kyra MD, PGY 2 Documentation for date of: 10/20/24 Subjective Subjective Interval history: No acute overnight events reported. Pt is seen and examined at bedside this morning. Pt has no complaints adn states he doesnt understand why no one lets him eat food because he has never had difficulty eating oral diet. Per daughter. Pt had PEG tube during hospitalization at [facility] in august, requested records and waiting on those. In house speech therapy was ordered for swallow screen and pt did not exhibit any signs of dysphagia. Per dietitian recommendation, will advance diet to dysphagia 3 and requeted bedside monitorin during oral feeding to continue to look for signs of aspiration or dysphagia. Pt's snell was also removed yesterday adn bladder scans showed no signs of retension and pt is able to void. Pt has refused labs and finger stick glucose checks. This morning initially pt had also refused medications and antibitoics but after speaking to him and reassuring him, he agreed for antibiotics. will update daughter Lakesha. Exam Vital Signs Temp Pulse Resp BP Pulse Ox O2 Del Method O2 Flow Rate 97.7 F 93 19 153/80 H 97 Room Air 2 10/20/24 12:00 10/20/24 12:00 10/20/24 12:00 10/20/24 12:00 10/20/24 12:00 10/20/24 12:00 10/20/24 12:00 Narrative Exam GENERAL: A&Ox2, awake, patient is not in distress NEURO: no focal neurological deficits noted HEENT: Atraumatic, Normocephalic. mucous membranes moist. Eyes open, symmetrical, & clear HEART: Normal Heart Sounds LUNGS: Clear to auscultation with no wheezing or crackles. ABDOMEN: soft, non-distended, non-tender, bowel sounds heard, no guarding or rebound tenderness SKIN: No Rash or ecchymoses, sacral stage 1 pressure ulcer EXTREMITIES: No edema, tenderness, able to move all 4 extremities, Pt has wound bilaterally on LE and feet with bandages Objective Labs 10/20/24 15:00 10/20/24 15:00 Quality Measures Quality Measures none Advance care planning discussed with:: other Assessment & Plan Assessment Current Active Medications: Generic Name Dose Route Start Last Admin Trade Name Freq PRN Reason Stop Dose Admin Acetaminophen 650 mg 10/17/24 16:58 Acetaminophen Supp 650 Mg Supp MA 11/16/24 16:17 Q6HR PRN FEVER>100.4 Protocol Acetaminophen 650 mg 10/17/24 16:59 10/17/24 21:47 Acetaminophen 325 Mg Tablet PO 11/16/24 16:17 650 mg Q6H PRN Administration Fever >100.4 Hydrocodone Bitart/Acetaminophen 1 tab 10/17/24 19:13 10/20/24 06:29 Hydrocodone/Apap 5/325 Tablet GT 10/22/24 19:12 1 tab Q6HR PRN Administration Moderate Pain 4-10 Ascorbic Acid 500 mg 10/17/24 21:00 10/20/24 08:04 Ascorbic Acid 250 Mg Tablet GT 11/16/24 20:59 500 mg BID TERRY Administration Balsam [place] Oil 0 gm 10/18/24 21:00 10/20/24 08:03 Balsam [place] Oil (Venelex) 60 Gm Tube TOP 11/17/24 20:59 1 applicatio BID TERRY Administration Carbidopa/Levodopa 1 tab 10/18/24 09:00 10/20/24 08:04 Carbidopa/Levodopa 25/100 Mg Tablet GT 11/17/24 08:59 1 tab QDAY TERRY Administration Dextrose 25 ml 10/17/24 19:09 Dextrose 50%-Water Inj 50 Ml Syringe IV 11/16/24 19:08 Q15MIN PRN BG 50-70 responsive npo pt Dextrose 50 ml 10/17/24 19:09 Dextrose 50%-Water Inj 50 Ml Syringe IV 11/16/24 19:08 Q15MIN PRN BG <50 OR BG <70 & pt unresponsive Gabapentin 300 mg 10/18/24 09:00 10/20/24 08:04 Gabapentin 300 Mg Capsule GT 11/17/24 08:59 300 mg QDAY TERRY Administration Glucagon 1 mg 10/17/24 19:09 Glucagon Inj 1 Mg Vial IM Q15MIN PRN BG <70, and no IV access Doxycycline Hyclate 100 mg/ 100 mls @ 100 mls/hr 10/17/24 21:00 10/20/24 08:18 Sodium Chloride IV 10/24/24 20:59 Not Given BID TERRY Ceftriaxone Sodium/Dextrose 2 gm in 50 mls @ 100 mls/hr 10/21/24 09:00 Rocephin/D5w 2gm IV 10/28/24 08:59 QDAY TERRY Lansoprazole 30 mg 10/21/24 09:00 Lansoprazole 30 Mg Tab. GT 11/18/24 14:59 QDAY TERRY Miconazole Nitrate 0 gm 10/17/24 21:00 10/20/24 08:05 Miconazole Nitrate Cr 2% 15 Gm Tube TOP 11/16/24 20:59 1 applicatio BID TERRY Administration Mirtazapine 7.5 mg 10/17/24 21:00 10/19/24 21:30 Mirtazapine 15 Mg Tablet GT 11/16/24 20:59 7.5 mg HS TERRY Administration Ondansetron HCl 4 mg 10/17/24 13:10 Ondansetron Inj 2 Mg/Ml Inj 2 Ml IV 11/16/24 13:09 Q4HR PRN NAUSEA OR VOMITING Rivaroxaban 10 mg 10/19/24 15:00 10/20/24 08:04 Rivaroxaban 10 Mg Tablet GT 11/18/24 14:59 10 mg QDAY TERRY Administration Sennosides 1 tab 10/18/24 09:00 10/20/24 08:04 Senna Tablet PO 11/17/24 08:59 1 tab QDAY TERRY Administration Protocol Zinc Sulfate 220 mg 10/18/24 09:00 10/20/24 08:04 Zinc Sulfate 220 Mg Capsule GT 11/17/24 08:59 220 mg QDAY TERRY Administration Plan Mr. Aguila is an 79-year-old male with past medical history significant for dysphagia s/p G-tube dependence, type 2 diabetes, hypertension, paroxysmal afib, CAD, hyperlipidemia, PTSD, GERD, BPH and Parkinson disease who was brought from [facility] due to altered mental status. Pt is admitted to the hospital for CVA rule out and sepsis secondary to UTI. #Sepsis 2/2 to #proteus miraballis Bacteremia #UTI #Bilateral heel ulcer SIRS 11/18 met: tachycardia, tachypnea, fever, leukocytosis, lactic acid 3.3 -Urinalysis: 1+ urine blood, leukocyte esterase positive, urine RBC 11, urine WBC 62 -Pt has a chronic Snell catheter, presented to the ED with a snell in place. -replaced the snell with a new one in ED on 10/18 -Pt has foul smelling non heeling bilateral heel ulcer, wound care is ordered. -X-ray is negative for cortical bone destruction -urine culture mix roxann -blood cultures grew proteus mirabellis 2/ -IV fluids given -repeat lactic acid is 4.9 on 10/18 -remove snell catheter on 10/19, bladder scan Q4h and voiding trial ordered -Ceftriaxone and doxycycline ordered 10/17- #Acute encephalopathy - likely multifactorial - resolved #Acute CVA -Ruled out -Per nursing facility staff pt was drowsy and not easily arousable -Urine tox: Opioids positive -Teleneuro was consulted -LKW:10/17/2024 11:40:00 -NIHSS Score: Patient is not a candidate for Thrombolytic. -Tele neuro consulted, recommendations appreciated -CT head: Negative for acute hemorrhage, mass effect or midline shift -CTA head and neck:Very atretic left vertebral artery with areas of no opacification of the neck, recommend carotid vertebral sonography follow-up to assess for retrograde flow left vertebral artery, No cerebral large vessel arterial occlusions or thrombus MRI with MRA: Negative for acute hemorrhage mass effect or midline shift, No acute infarct, Moderate chronic microvascular white matter change Plan: -Neuro checks q4HR -Keep head of bed elevated at 30 degrees -limit sedating meds -Euglycemia and Avoid Hyperthermia (PRN Acetaminophen) -allow permissive HTN for first 24 hours than slowly and gradually goal normotension thereafter -echo with bubble study ordered- pending read -follow up lipid panel, HbA1c, TSH with free T4- all within normal limits -Referral to PT/OT/speech therapy #Normocytic Anemia -On admission Hgb 9.4 and Hct 30.4 -Previous visit Hgb above 14 -no signs of active bleeding, will continue to monitor and consult GI if Hgb continues to drop #GERD #Dysphagia s/p G-tube dependence -Pt is started on pantropazole and will resume tube feeds -Speech eval is ordered recommended dysphagia 3 diet. -started pt on oral diet with monitoring for aspiration. Will continue to monitor if pt is able to tolerate oral diet will plan to remove G tube before discharge. #Type 2 diabetes -A1c 4.6 on 10/17/24 -Blood sugars and finger stick is stable -will hold insulin sliding scale today, will resume tomorrow #Primary Hypertension #Paroxysmal a-fib #CAD #hyperlipidemia -med rec pending , BP is stable #PTSD #Parkinson disease -resumed home carbidopa-levodopa 25-100 mg #BPH -Chronic Snell, Pt arrived from the facility with a snell. -Pt has a UTI therefore snell was replaced in the ED on 10/19 -Per daughter, Pt is able to void without difficulty and previously have used briefs and pads. Pt was discharged home from [facility] with snell Aug 2024. - snell removed on 10/19 Health Maintenance Disposition: Telemetry DVT Prophylaxis: Xarelto 10mg Qdaily GI Prophylaxis: Pantoprozol-40 IV Qday Diet: tube feeds resumed Lines: Peripheral lines Code status: Full Assessment and plan discussed with my senior resident Dr. Montes & attending physician Dr. Ang Salvador (PGY-1)- Internal medicine resident Attending Provider Attestation/Addendum I have discussed and was present for the essential components of the history, physical examination, diagnosis, and treatment plan with the resident. I agree with the patient's care as documented by the resident and amended herein by me. Simba Fry DO. Although this document has been carefully reviewed, there may still be some phonetic and other typographical errors. These errors are purely grammatical due to imperfections in the software program and should not be construed in any way to compromise the substance of the patient's medical care during this visit.
[2024-10-20 15:18] LABS: Basophils # (Auto) 0.1 Thou/mm3 (0.0-0.2); Basophils % (Auto) 1 % (0-2.5); Eosinophils # (Auto) 0.3 Thou/mm3 (0.0-0.5); Eosinophils % (Auto) 3 % (0-10); Hematocrit 25.3 % (41.0-53.0); Immature Granulocytes % (Auto) 1 % (0-0); Immature Granulocytes Auto 0.07 Thou/mm3 (0.00-0.00); Lymphocytes # (Auto) 1.6 Thou/mm3 (1.0-4.8); Lymphocytes % (Auto) 14 % (10-50); Mean Corpuscular HGB Conc 31.6 g/dl (31.0-37.0); Mean Corpuscular Volume 92 fL (80-100); Monocytes # (Auto) 1.1 Thou/mm3 (0.0-0.8); Monocytes % (Auto) 9 % (0-12); Neutrophils # (Auto) 8.5 Thou/mm3 (1.8-7.7); Neutrophils % (Auto) 73 % (37-80); Nucleated Red Blood Cell % 0 /100 WBC (0); Platelet Count 364 Thou/mm3 (140-440); RDW Standard Deviation 49.8 fL (35.1-43.9); Red Blood Count 2.76 Miln/mm3 (4.50-5.90); White Blood Count 11.6 Thou/mm3 (3.8-10.6)
[2024-10-20 15:29] LABS: Hemoglobin 8.1 g/dL (13.5-16.0)
[2024-10-20 16:00] VITALS: BP 120/79; PULSE 81; PULSE 83; RESP 18; TEMP 36.8; O2SAT 99
[2024-10-20 16:10] LABS: Alanine Aminotransferase < 7 U/L (10-49); Albumin, Serum 3.3 gm/dL (3.4-4.8); Albumin/Globulin Ratio 0.7 (1.2-2.2); Alkaline Phosphatase 80 U/L (46-116); Anion Gap 7 (7-16); Aspartate Amino Transferase 12 U/L (0-34); BUN/Creatinine Ratio 28 Ratio (12-20); Bilirubin,Total < 0.2 mg/dL (0.3-1.2); Blood Urea Nitrogen 36 mg/dL (9-23); Calcium 8.9 mg/dL (8.3-10.6); Calcium (Corrected) 9.5 mg/dL (8.5-10.1); Carbon Dioxide 24.2 mMol/L (20.0-31.0); Chloride 105 mMol/L (98-107); Creatinine (Component) 1.3 mg/dL (0.6-1.3); Estimated Creatinine Clearance 54.2 mL/min (>60); Globulin 4.9 gm/dL (2.3-3.5); Glucose 146 mg/dL (74-106); Magnesium 1.8 mg/dL (1.6-2.6); Osmolality,Calculated 283 (275-295); Phosphorous 4.1 mg/dL (2.4-5.1); Potassium 4.8 mMol/L (3.4-5.1); Sodium 136 mMol/L (136-145); Total Protein 8.2 gm/dL (5.7-8.2); eGFR 55 See Note
--- NOTE | 2024-10-20 17:42 | PC.NURSE ---
hand off from Tineasha, pt comfortable in bed
--- NOTE | 2024-10-20 18:39 | PC.NURSE ---
Dr. Salvador notified pt refused bladder scan. Notified Dr. Salvador of 105 BS
[2024-10-20] MEDS: HYDROmorphone INJ 2 MG/ML VIAL 0.5 MG IVP (19:25)
[2024-10-20 20:00] VITALS: BP 130/71; PULSE 80; RESP 20; TEMP 36.6; O2SAT 98
--- NOTE | 2024-10-20 21:07 | PD.VPROG1 ---
Telemedicine visit statement This visit was conducted with the use of phone was obtained on 10/20/24 at 2107. Documentation for date of: 10/20/24 Subjective Subjective Interval history: Patient is in telemetry. No new symptoms reported. Patient is back to baseline with regards to mental status Virtual exam Vital Signs Temp Pulse Resp BP Pulse Ox O2 Del Method O2 Flow Rate 97.9 F 80 20 130/71 98 Room Air 2 10/20/24 20:00 10/20/24 20:00 10/20/24 20:00 10/20/24 20:00 10/20/24 20:00 10/20/24 20:00 10/20/24 12:00 Objective Labs 10/20/24 15:00 10/20/24 15:00 Labs: Laboratory Results - last 24 hr 10/20/24 15:00 WBC 11.6 H D RBC 2.76 L Hgb 8.1 L Hct 25.3 L MCV 92 MCH 29.0 MCHC 31.6 RDW Std Deviation 49.8 H Plt Count 364 D Neut % (Auto) 73 Lymph % (Auto) 14 [place] % (Auto) 9 Eos % (Auto) 3 Baso % (Auto) 1 Neut # (Auto) 8.5 H Lymph # (Auto) 1.6 [place] # (Auto) 1.1 H Eos # (Auto) 0.3 Baso # (Auto) 0.1 Immature Gran # (Auto) 0.07 H Absolute Nucleated RBC 0.00 Immature Gran % 1 H Nucleated RBC % 0 Sodium 136 Potassium 4.8 D Chloride 105 Carbon Dioxide 24.2 Anion Gap 7 BUN 36 H Creatinine 1.3 Estim Creat Clear Calc 54.2 L eGFR 55 L BUN/Creatinine Ratio 28 H Glucose 146 H Calculated Osmolality 283 Calcium 8.9 Corrected Calcium 9.5 Phosphorus 4.1 Magnesium 1.8 Total Bilirubin < 0.2 L AST 12 ALT < 7 L Alkaline Phosphatase 80 Total Protein 8.2 Albumin 3.3 L Globulin 4.9 H Albumin/Globulin Ratio 0.7 L Assessment & Plan Assessment 1) Parkinsons disease: Continue with the carbidopa levodopa 25/100: 3 times a day Continue with range of motion exercises in the lower extremities to prevent contracture From worsening spasticity and rigidity (2) Essential hypertension: Continue with current meds (3) Frequent falls: Secondary to underlying Parkinson's disease progression MRI brain: Negative for acute infarction, moderate chronic white matter changes Patient has been bedridden at baseline (4) Encephalopathy acute: resolved. Likely from sepsis/pneumonia/UTI Continue with antibiotics as per primary team
[2024-10-20] MEDS: MIRTAZAPINE 15 MG TABLET 7.5 MG GT (22:15)
[2024-10-20] MEDS: DOXYCYCLINE 100 MG TABLET GT (23:54)
[2024-10-21] VITALS: BP 121/71; PULSE 84; RESP 22; TEMP 36.1; O2SAT 96
--- NOTE | 2024-10-21 03:30 | PC.NURSE ---
Report received from Elaine RN, pt arrived to room 377 via bed. Oriented pt to room. Pt noted to have kerlix roll on BLE generalized scabbing and bruising, feeding tube dressing changed with redness noted to site. Pt decline to allow for staff to turn/reposition pt to assess back side. IV 24g to right FA not functioning, pt declines to have new one placed stated will like to wait for doctors to see what is going to happen. MDs had been notified by previous RN.
[2024-10-21 04:00] VITALS: BP 105/75; PULSE 96; RESP 19; TEMP 36.1; O2SAT 99
[2024-10-21 06:00] VITALS: BMI 28.2
--- NOTE | 2024-10-21 06:57 | PC.NURSE ---
Pt refused x2 for additional IV insertion stated will wait for MD to come. MD had been notified previously.
[2024-10-21 08:00] VITALS: BP 125/70; PULSE 87; RESP 18; TEMP 36.3; O2SAT 97
[2024-10-21] MEDS: GABAPENTIN 300 MG CAPSULE GT (09:20)
[2024-10-21] MEDS: LANSOPRAZOLE 30 MG TAB.RAP.DR GT (11:15)
[2024-10-21] MEDS: ASCORBIC ACID 250 MG TABLET 500 MG GT (11:16)
[2024-10-21] MEDS: RIVAROXABAN 10 MG TABLET GT (11:16)
[2024-10-21] MEDS: ZINC SULFATE 220 MG CAPSULE GT (11:16)
[2024-10-21] MEDS: SENNA TABLET 1 TAB PO (11:17)
[2024-10-21] MEDS: CARBIDOPA/LEVODOPA 25/100 MG TABLET 1 TAB GT (11:17)
[2024-10-21] MEDS: BALSAM PERU/CASTOR OIL (Venelex) 60 GM TUBE TOP (11:17)
[2024-10-21] MEDS: MICONAZOLE NITRATE CR 2% 15 GM TUBE TOP (11:20)
[2024-10-21 12:00] VITALS: BP 121/72; PULSE 80; PULSE 83; RESP 16; TEMP 36.5; O2SAT 97
[2024-10-21 12:52] VITALS: BMI 28.2
--- NOTE | 2024-10-21 13:42 | PC.SS ---
Follow up note: Patient has d/c orders for today. SS spoke to Lakesha oliveros, regarding discharge orders. She is agreeable. Later in afternoon, daughters spoke to patient about staying and agreeing to antibiotics. However, physician spoke to patient and there is no need to stay. Patient is medically ready for discharge. Care has been completed. Patient agreeable to d/c back to [facility]. [facility] was contacted and set up for [id number]
[2024-10-21] MEDS: HYDROcodone/APAP 5/325 TABLET 1 TAB GT (14:53)
--- NOTE | 2024-10-21 14:53 | PC.SS ---
[facility] still [facility] have [facility] confirmation for transport by [facility]. SS contacted [facility] and they state they do not have an assigned transportation co. yet. D/c pickle processor time pending.
--- NOTE | 2024-10-21 16:30 | ESDS_ITS ---
Planned Discharge Date 10/21/24 DS: Providers Provider Date of admission: 10/17/24 16:40 Primary care physician: Sadie Cotto MD Admitting Provider: Martha Mccracken MD Attending Provider on Admission: Randolph Fry DO Consults: 10/17/24 13:10 Consult to Neurology / Tele-Neurology Routine Comment: Consulting Provider: [facility] 10/17/24 16:25 Referral Wound Care Routine Comment: 10/17/24 16:26 Referral Physical Therapy Routine Comment: Physician Instructions: Referral Speech Therapy Routine Comment: 10/17/24 19:27 Referral Registered Dietitian Routine Comment: 10/18/24 08:09 Consult to Neurology / Tele-Neurology Routine Comment: Consulting Provider: Luis Poe Attending Provider on DC: Lidia Salvador MD Discharging Provider: Lidia Salvador MD DS: Diagnosis Problem List Completed Was Problem List Reviewed/Reconciled?: Yes Hospital Course Hospital Course Hospital course: Mr. Aguila is an 79-year-old male with past medical history significant for dysphagia s/p G-tube dependence, type 2 diabetes, hypertension, paroxysmal afib, CAD, hyperlipidemia, PTSD, GERD, BPH and Parkinson disease who was brought to [facility] ED from [facility] on 10/17/2024 due to altered mental status. On arrival to the ED and the information given by the nursing staff from the [facility] stroke alert was called, neurologist was consulted and patient underwent investigation of stroke and all stroke workup was negative. During arrival patient was also found to be septic with symptoms of tachycardia, tachypnea, fever, leukocytosis and lactic acid was 3.3. Patient was given bolus fluids and IV antibiotics were started as patient was found to have UTI and GNR bacteremia. Blood cultures grew Proteus mirabilis and patient was continued on IV antibiotics. During hospitalization patient often refused to take medication as well as refuse blood draws. Patient's Colon catheter was removed and patient underwent voiding trial without difficulty urinating and bladder scans every 4 hours did not exhibit any urinary retention. It is determined patient no longer needs the Colon catheter as patient is able to urinate without difficulty and retention. Although patient came to the hospital with a PEG to Per conversation with the patient as well as daughter patient never had difficulty swallowing or any sort of dysphagia. Speech therapy was ordered for swallow evaluation and patient did not exhibit any signs of dysphagia or difficulty with swallowing. Speech therapist recommended d ysphagia 3 diet and patient was ordered oral diet which she tolerated without difficulty. It is recommended patient is supervised during mealtimes and can tolerate oral diet. PEG tube feedings were stopped during the hospitalization, it is recommended patient follow-up outpatient with a GI specialist regarding removal of the G-tube. Bilateral foot x-ray was ordered and no cortical bone destruction was found, wound care was ordered during hospitalization. As patient's past medical history include proximal A-fib however patient is not on any rate control medications nor on anticoagulation, echocardiogram was ordered which showed ejection fraction of 55 to 60% with moderate PAH with RVSP of 48-50 mmHg and moderate TR. patient is recommended to follow-up outpatient with correctional officer lieutenant Dr. Ana Garcia. Patient is hemodynamically stable and is tolerating oral diet and is ready to be discharged home to [facility]. Patient is advised if symptoms worsen or recur to promptly return to the ED. Discharge Recommendations -Follow up outpatient with primary care physician within 2 weeks -You have been prescribe antibiotics for additional 9 days to complete 2 weeks antibiotic course -Take your home medications as directed -Follow up outpatient with correctional officer lieutenant Dr. Krish Garcia -Patient underwent swallow evaluation and did not exhibit signs of dysphagia and passed swallow screen. Patient is currently on dysphagia 3 diet. Pt may continue oral diet with supervision. PEG tube maybe used for medication administration and should be reevaluated for removal outpatient with GI speciallist. -Pt to continue wound care outpatient -Strict return to ED if symptoms reoccur or worsen Hospitalization Diagnosis #Sepsis 2/2 to -resolved #proteus miraballis Bacteremia #UTI #Bilateral heel ulcer #Acute encephalopathy - likely multifactorial - resolved #Acute CVA -Ruled out #Normocytic Anemia #GERD #Dysphagia s/p G-tube dependence #Type 2 diabetes #Primary Hypertension #Paroxysmal a-fib #CAD #hyperlipidemia #PTSD #Parkinson disease #BPH Assessment and plan discussed with my attending physician Dr. Ang Salvador (PGY-1)- Internal medicine resident Status at Discharge Functional status at discharge: bed bound Time Spent with Patient Time attestation: Total time spent providing and/or coordinating discharge services: Time spent: Greater than 30 minutes Exam Vital Signs Temp Pulse Resp BP Pulse Ox O2 Del Method O2 Flow Rate 97.7 F 80 16 121/72 97 Room Air 2 10/21/24 12:00 10/21/24 12:00 10/21/24 12:00 10/21/24 12:00 10/21/24 12:00 10/21/24 12:00 10/21/24 08:00 Narrative Exam GENERAL: A&Ox2, awake, patient is not in distress NEURO: no focal neurological deficits noted HEENT: Atraumatic, Normocephalic. mucous membranes moist. Eyes open, symmetrical, & clear HEART: Normal Heart Sounds LUNGS: Clear to auscultation with no wheezing or crackles. ABDOMEN: soft, non-distended, non-tender, bowel sounds heard, no guarding or rebound tenderness SKIN: No Rash or ecchymoses, sacral stage 1 pressure ulcer EXTREMITIES: No edema, tenderness, able to move all 4 extremities, Pt has wound bilaterally on LE and feet with bandages Discharge Plan Plan Patient Disposition: Xfer Skilled [facility]sg Fac (SNF) Patient condition on transfer: Stable Care Plan Goals: -Follow up outpatient with primary care physician within 2 weeks -You have been prescribe antibiotics for additional 9 days to complete 2 weeks antibiotic course -Take your home medications as directed -Follow up outpatient with correctional officer lieutenant Dr. Krish Garcia -Patient underwent swallow evaluation and did not exhibit signs of dysphagia and passed swallow screen. Patient is currently on dysphagia 3 diet. Pt may continue oral diet with supervision. PEG tube maybe used for medication administration and should be reevaluated for removal outpatient with GI speciallist. -Pt to continue wound care outpatient -Strict return to ED if symptoms reoccur or worsen Prescriptions/Referrals Prescriptions/Med Rec: New ascorbic acid (vitamin C) [Vitamin C] 250 mg Tablet 500 mg G-tube BID Qty: 90 0RF balsam patience-castor oil [Venelex] Ointment 1 applic top BID Qty: 60 0RF zinc sulfate 50 mg zinc (220 mg) Capsule 220 mg G-tube QDAY Qty: 90 0RF doxycycline monohydrate 100 mg tablet 100 mg PO BID 9 Days Qty: 18 0RF cefpodoxime 200 mg tablet 400 mg PO BID 9 Days Qty: 36 0RF Rx Instructions: must administer with a meal/food Continued carbidopa-levodopa 25-100 mg tablet 1 tab feeding tube Q6HR bisacodyl [Dulcolax (bisacodyl)] 10 mg suppository 10 mg SD QDAY PRN (Reason: constipation) Rx Instructions: if MOM ineffective and no BM for 8 hours sodium phosphates 19-7 gram/118 mL enema 118 ml SD QDAY PRN (Reason: constipation) Rx Instructions: If MOM and Dulcolax suppository ineffective and no BM in 8 hours ferrous sulfate 220 mg (44 mg iron)/5 mL elixir 220 mg feeding tube QDAY furosemide 20 mg tablet 20 mg feeding tube QDAY gabapentin 300 mg capsule 300 mg feeding tube BID hydrocodone-acetaminophen 5-325 mg tablet 1 tab PO Q4H PRN (Reason: pain) Rx Instructions: moderate to severe 7-10 insulin glargine [Lantus U-100 Insulin] 100 unit/mL solution 5 unit subcut QAM Rx Instructions: hold BG<100 miconazole nitrate [Antifungal (miconazole)] 2 % cream 1 applic topical BID Rx Instructions: to MASD tp groins and scrotum mirtazapine 7.5 mg tablet 7.5 mg PO HS multivitamin Tablet 1 tab feeding tube QAM calamine-zinc oxide 3-20 % cream 1 applic topical Q8HR Rx Instructions: Patient used 40% ointment for MASD polyethylene glycol 3350 17 GM packet 17 g feeding tube QDAY PRN (Reason: constipation ) Discontinued Metformin Hcl * (GLUCOPHAGE *) tablet 500 mg PO BIDAC Qty: 0 lisinopril 20 MG tablet 20 mg PO QDAY Qty: 0 Amlodipine Besylate 5 MG tablet 5 mg PO QDAY Qty: 30 0RF nitroglycerin [Nitrostat] 0.4 MG tablet, sublingual 0.4 mg SL Q5MIN PRN (Reason: CHEST PAIN) Qty: 15 0RF aspirin 81 MG tablet,chewable 81 mg PO QDAY Qty: 30 0RF doxycycline hyclate 100 mg tablet 100 mg feeding tube BID Referrals: Sadie Cotto MD [Primary Care Provider] - Patient/Caregiver Discharge Instructions Print Language: Mohawk Stand Alone Forms: Ramona Award Info., Patient Portal Info Letter Discharge Order Discharge Orders: Discharge (Routine); Ordered 10/21/24 Ordered By: Lidia Salvador Quality Discharge Quality Measures VTE prophylaxis Attestestation Attdiego I have discussed and was present for the essential components of the discharge history, physical examination, diagnosis, and discharge treatment plan with the resident. I agree with the patient's discharge care as documented by the resident and amended herein by me. Simba rFy DO. The patient understood all discharge instructions, all questions were answered satisfactorily. The patient was instructed to return to the Emergency Department is symptoms worsened or persisted. Patient was stable, afebrile and tolerating p.o. intake at time of discharge. We did leave the patient's G-tube in place for now, patient can follow-up outpatient and have it removed at a later date if he continues to do well with oral feeds. Colon catheter also removed during this hospitalization, patient urinating normally, with minimal residual urine volume after voids. Patient also discharged with a course of cefpodoxime and doxycycline, see resident note above for specific details. I did personally speak with the patient's daughter reassuring her that the discharge was safe at this time, all questions answered satisfactorily. Although this document has been carefully reviewed, there may still be some phonetic and other typographical errors. These errors are purely grammatical due to imperfections in the software program and should not be construed in any way to compromise the substance of the patient's medical care during this visit.
== END 2024-10-21 16:06 | disposition skilled nursing facility (03) | DRG 698 ==
LOC: SERX 15:27 → SERHOLD 17:10 → S2NX 22:06 → S3SX 10-21 03:32
PROVIDERS: Registered Nurse General Practice; Student in an Organized Health Care Education/Training Program; Admitting Provider Internal Medicine; Emergency Provider Emergency Medicine; PCP Hospitalist; Visit Provider Internal Medicine
DX: T83.511A Infection and inflammatory reaction due to indwelling urethral catheter, initial encounter (principal); A41.59 Other Gram-negative sepsis; L97.419 Non-pressure chronic ulcer of right heel and midfoot with unspecified severity; E87.20 Acidosis, unspecified; L97.429 Non-pressure chronic ulcer of left heel and midfoot with unspecified severity; G93.49 Other encephalopathy; N39.0 Urinary tract infection, site not specified; E11.621 Type 2 diabetes mellitus with foot ulcer; G20.A1 Parkinson's disease without dyskinesia, without mention of fluctuations; F43.10 Post-traumatic stress disorder, unspecified; K21.9 Gastro-esophageal reflux disease without esophagitis; N40.0 Benign prostatic hyperplasia without lower urinary tract symptoms; I10 Essential (primary) hypertension; I48.0 Paroxysmal atrial fibrillation; I25.10 Atherosclerotic heart disease of native coronary artery without angina pectoris; E78.5 Hyperlipidemia, unspecified; D64.9 Anemia, unspecified; R13.10 Dysphagia, unspecified; R29.6 Repeated falls; L89.151 Pressure ulcer of sacral region, stage 1; R29.810 Facial weakness; Z93.1 Gastrostomy status; Z95.0 Presence of cardiac pacemaker; Z87.891 Personal history of nicotine dependence; Z87.440 Personal history of urinary (tract) infections; Z79.899 Other long term (current) drug therapy; Z79.4 Long term (current) use of insulin; Z88.0 Allergy status to penicillin; Y73.2 Prosthetic and other implants, materials and accessory gastroenterology and urology devices associated with adverse incidents; Y84.6 Urinary catheterization as the cause of abnormal reaction of the patient, or of later complication, without mention of misadventure at the time of the procedure
CPT/HCPCS: 36415; 70450; 70496; 70498; 70544; 71045; 73630; 80053; 80061; 80307; 81001; 82550; 83036; 83605; 83735; 84100; 84443; 84484; 84703; 85025; 85610; 85652; 85730; 86140; 87040; 87077; 87086; 87186; 87400; 87811; 92523; 92526; 92610; 93005; 93306; 96361; 96365; 97161; 99285; A4649; J0696; J1650; J2470; J3490; J7030; J7050; J7120; Q9967; A9270